=== PATIENT | female | born 1985 | race Caucasian/White ===

== ENCOUNTER 2016-11-19 13:30 | Emergency (ER) | payer MEDICAID ==
[~2016-11-19] VITALS: Ht 175.3 cm; Wt 89.0 kg
[~2016-11-19 13:30] MED LIST: ALBU1AER INH; BENZ100 PO; OSEL75 PO; Z.0.NO CURRENT MEDS
[2016-11-19 13:37] VITALS: BP 152/91; PULSE 87; RESP 18; TEMP 98; O2SAT 96
[2016-11-19] MEDS ORDERED: SODIUM CHLOR 0.9% 1000 ML INJ 1,000 ML IV ONE (13:39)
[2016-11-19 13:40] VITALS: BP 152/91; PULSE 87; RESP 18; TEMP 98; O2SAT 97
[2016-11-19 13:43] VITALS: RESP 18; O2SAT 97
[2016-11-19] MEDS ORDERED: SODIUM CHLORIDE 0.9% FLUSH 5 ML FLUSH IVF PRN (13:45)
--- NOTE | 2016-11-19 13:57 | PD ---
HPI Chief Complaint: Seizure Time Seen by Provider: 13:40 Travel History International Travel<30 days: No Contact w/Intl Traveler<30days: No Traveled to known affect area: No History of Present Illness HPI Patient is a 31-year-old female who presents emergency department for possible seizure. Patient states that she's been detoxing at home off of heroin since November 13, she has had a lack of appetite, insomnia, feeling "shaky", dizziness. She states that she's been attending meetings daily. She also reports using Xanax, she states that she was prescribed it but wouldn't tell a portion of it and keep 20 pills but would not take them consistently or on a daily basis. Patient denies any nausea, vomiting, chest pain, shortness of breath, headache. She was not incontinent after the seizure. [facility] Past Medical History Narrative Medical Drug use, heroin Bipolar Disorder: Yes Anxiety: Yes Depression: Yes Diminished Hearing: No Influenza Vaccination: No ?: Not : 1 Para: 0 Miscarriage: 1 : 0 Ovarian Cysts: Yes Past Surgical History Surgical History: No Previous Surgery Family History Family History: Negative Social History Alcohol Use: No Tobacco Use: Yes (/2 PPD) Substance Use: Yes (Heroin frequently and Xanax occasionally) Allergies-Medications (Allergen,Severity, Reaction): Coded Allergies: No Known Allergies (Verified , 12/21/13) Reported Meds & Prescriptions Reported Meds & Active Scripts Active Proair Hfa (Albuterol Sulfate) 8.5 Gm Aero 2 Puff INH Q4 * SHAKE WELL BEFORE USE * Tessalon Perles (Benzonatate) 100 Mg Cap 100 Mg PO TID PRN Tamiflu (Oseltamivir Phosphate) 75 Mg Cap 75 Mg PO BID 5 Days Reported No Current Meds (Miscellaneous Medication) Misc Review of Systems Except as stated in HPI: all other systems reviewed are Neg General / Constitutional: No: Fever, Chills Eyes: No: Blurred Vision HENT: No: Headaches, Lightheadedness Cardiovascular: No: Chest Pain or Discomfort Respiratory: No: Shortness of Breath Gastrointestinal: Positive: Loss of Appetite, No: Nausea, Vomiting Neurologic: Positive: Dizziness, Tremor, Seizures Physical Exam Narrative GENERAL: Well developed, well-nourished, alert female. Resting comfortably in no acute distress. Patient does appear anxious. SKIN: Warm and dry. HEAD: Atraumatic. Normocephalic. EYES: Pupils equal and round. No scleral icterus. No injection or drainage. ENT: No nasal bleeding or discharge. Mucous membranes pink and moist. NECK: Trachea midline. No JVD. CARDIOVASCULAR: Regular rate and rhythm. No murmur appreciated. RESPIRATORY: No accessory muscle use. Clear to auscultation. Breath sounds equal bilaterally. GASTROINTESTINAL: Abdomen soft, non-tender, nondistended. Hepatic and splenic margins not palpable. MUSCULOSKELETAL: No obvious deformities. No clubbing. No cyanosis. No edema. NEUROLOGICAL: Awake and alert. No obvious cranial nerve deficits. Motor grossly within normal limits. Normal speech. PSYCHIATRIC: Appropriate mood and affect; insight and judgment normal. Data Data Last Documented VS Vital Signs Date Time Temp Pulse Resp B/P Pulse Ox O2 Delivery O2 Flow Rate FiO2 11/19/16 13:43 18 97 Room Air 11/19/16 13:40 98.0 87 152/91 Orders Complete Blood Count With Diff (11/19/16 13:39) Electrocardiogram (11/19/16 ) Ct Brain W/O Iv Contrast(Rout) (11/19/16 ) Blood Glucose (11/19/16 13:39) Ecg Monitoring (11/19/16 13:39) Iv Access Insert/Monitor (11/19/16 13:39) Oximetry (11/19/16 13:39) Comprehensive Metabolic Panel (11/19/16 13:39) Sodium Chlor 0.9% 1000 Ml Inj (Ns 1000 M (11/19/16 13:39) Sodium Chloride 0.9% Flush (Ns Flush) (11/19/16 13:45) Ed Urine Pregnancytest Poc (11/19/16 13:39) Potassium Chloride (Kcl) (11/19/16 15:45) Labs Laboratory Tests Test 11/19/16 14:28 White Blood Count 10.4 TH/MM3 Red Blood Count 4.75 MIL/MM3 Hemoglobin 14.4 GM/DL Hematocrit 41.5 % Mean Corpuscular Volume 87.3 FL Mean Corpuscular Hemoglobin 30.3 PG Mean Corpuscular Hemoglobin 34.7 % Concent Red Cell Distribution Width 13.2 % Platelet Count 438 TH/MM3 Mean Platelet Volume 7.8 FL Neutrophils (%) (Auto) 72.0 % Lymphocytes (%) (Auto) 21.9 % Monocytes (%) (Auto) 5.5 % Eosinophils (%) (Auto) 0.2 % Basophils (%) (Auto) 0.4 % Neutrophils # (Auto) 7.5 TH/MM3 Lymphocytes # (Auto) 2.3 TH/MM3 Monocytes # (Auto) 0.6 TH/MM3 Eosinophils # (Auto) 0.0 TH/MM3 Basophils # (Auto) 0.0 TH/MM3 CBC Comment DIFF FINAL Differential Comment Sodium Level 140 MEQ/L Potassium Level 3.4 MEQ/L Chloride Level 106 MEQ/L Carbon Dioxide Level 22.8 MEQ/L Anion Gap 11 MEQ/L Blood Urea Nitrogen 8 MG/DL Creatinine 0.93 MG/DL Estimat Glomerular Filtration 71 ML/MIN Rate Random Glucose 109 MG/DL Calcium Level 9.8 MG/DL Total Bilirubin 0.7 MG/DL Aspartate Amino Transf 40 U/L (AST/SGOT) Alanine Aminotransferase 90 U/L (ALT/SGPT) Alkaline Phosphatase 130 U/L Total Protein 8.9 GM/DL Albumin 4.7 GM/DL MDM Medical Decision Making Medical Screen Exam Complete: Yes Emergency Medical Condition: Yes Interpretation(s) Vital Signs Date Time Temp Pulse Resp B/P Pulse Ox O2 Delivery O2 Flow Rate FiO2 11/19/16 13:43 18 97 Room Air 11/19/16 13:40 98.0 87 18 152/91 97 Room Air 11/19/16 13:40 80 18 95 Room Air 11/19/16 13:37 98.0 87 18 152/91 96 Differential Diagnosis Substance abuse versus withdrawal versus seizure versus pseudoseizure versus other Narrative Course Patient is a 31-year-old female who presents emergency via EMS after she was found convulsing on the floor for home. Patient has no history of seizure disorder, she has a heroin addiction and occasional Xanax use. She has been clean since November 13 of this year. She has not had any nausea or vomiting but reports decreased appetite, insomnia, tremors. She is positive for hepatitis C. Her vital signs are currently stable, she is well oxygenated on room air and does not appear to be in a postictal state. Patient is neurologically intact. Labs and imaging ordered and pending. Patient reports using Xanax however she states that she would sell a portion of her prescription order to buy heroin and denies consistent daily usage. It is less likely the patient is experiencing seizure activity secondary to benzodiazepine withdrawal. EKG shows normal sinus rhythm CT of the brain is negative for acute abnormality, normal examination. CBC is unremarkable Chemistry shows a potassium of 3.4, this will be replaced with oral supplementation. Patient has not had any further seizure activity in the emergency department, she remains neurologically intact. At this time patient will be discharged home, she will be given information for outpatient detox. She is encouraged to return to emergency department for any new or worsening symptoms. Patient verbalized understanding of instructions. Patient is stable for discharge. Diagnosis Primary Impression: Seizure-like activity Additional Impression: Heroin addiction Referrals: [facility] 1 day Patient Instructions: General Instructions, New-Onset Seizure in Adults (ED) Additional Instructions: Follow-up with your primary doctor Follow-up with the [facility] for further assistance Return to emergency department for any new or worsening symptoms Med/Other Pt SpecificInfo: No Change to Meds Disposition: 01 DISCHARGE HOME Condition: Stable Silvana Campos Nov 19, 2016 13:57
[2016-11-19 15:03] LABS: AUTOMATED NEUTROPHIL # 7.5 TH/MM3 (1.8-7.7); BASOPHIL % 0.4 % (0.0-2.0); EOSINOPHIL % 0.2 % (0.0-4.0); HEMATOCRIT 41.5 % (35.0-46.0); HEMO FLAGS DIFF FINAL; LYMPH % 21.9 % (9.0-44.0); LYMPHOCYTE # 2.3 TH/MM3 (1.0-4.8); MEAN CELL VOLUME 87.3 FL (80.0-100.0); MEAN CORPUSCULAR HEMOGLOBIN 30.3 PG (27.0-34.0); MEAN CORPUSCULAR HGB CONC 34.7 % (32.0-36.0); MONO % 5.5 % (0.0-8.0); PLATELET COUNT 438 TH/MM3 (150-450); RED BLOOD COUNT 4.75 MIL/MM3 (4.00-5.30); RED CELL DISTRIBUTION WIDTH 13.2 % (11.6-17.2); WHITE BLOOD COUNT 10.4 TH/MM3 (4.0-11.0)
--- NOTE | 2016-11-19 15:06 | RADRPT ---
EXAM DATE/TIME: 11/19/2016 14:42 [place] COMPARISON: No previous studies available for comparison. INDICATIONS : Seizure; heroin detox. RADIATION DOSE: 56.35 CTDIvol (mGy) MEDICAL HISTORY : None. SURGICAL HISTORY : None. ENCOUNTER: Initial ACUITY: 1 day PAIN SCALE: 0/10 LOCATION: cranial TECHNIQUE: Multiple contiguous axial images were obtained of the head. Using automated exposure control and adj ustment of the mA and/or kV according to patient size, radiation dose was kept as low as reasonably a chievable to obtain optimal diagnostic quality images. FINDINGS: CEREBRUM: The ventricles are normal for age. No evidence of midline shift, mass lesion, hemorrhage or acute in farction. No extra-axial fluid collections are seen. POSTERIOR FOSSA: The cerebellum and brainstem are intact. The 4th ventricle is midline. The cerebellopontine angle i s unremarkable. EXTRACRANIAL: The visualized portion of the orbits is intact. SKULL: The calvaria is intact. No evidence of skull fracture. CONCLUSION: Normal examination. Jovi Patrick MD on November 19, 2016 at 15:03 Board Certified Radiologist. This report was verified electronically.
--- NOTE | 2016-11-19 15:24 | PD ---
Data Data Last Documented VS Vital Signs Date Time Temp Pulse Resp B/P Pulse Ox O2 Delivery O2 Flow Rate FiO2 11/19/16 13:43 18 97 Room Air 11/19/16 13:40 98.0 87 152/91 Orders Complete Blood Count With Diff (11/19/16 13:39) Electrocardiogram (11/19/16 ) Ct Brain W/O Iv Contrast(Rout) (11/19/16 ) Blood Glucose (11/19/16 13:39) Ecg Monitoring (11/19/16 13:39) Iv Access Insert/Monitor (11/19/16 13:39) Oximetry (11/19/16 13:39) Comprehensive Metabolic Panel (11/19/16 13:39) Sodium Chlor 0.9% 1000 Ml Inj (Ns 1000 M (11/19/16 13:39) Sodium Chloride 0.9% Flush (Ns Flush) (11/19/16 13:45) Ed Urine Pregnancytest Poc (11/19/16 13:39) Labs Laboratory Tests Test 11/19/16 14:28 White Blood Count 10.4 TH/MM3 Red Blood Count 4.75 MIL/MM3 Hemoglobin 14.4 GM/DL Hematocrit 41.5 % Mean Corpuscular Volume 87.3 FL Mean Corpuscular Hemoglobin 30.3 PG Mean Corpuscular Hemoglobin 34.7 % Concent Red Cell Distribution Width 13.2 % Platelet Count 438 TH/MM3 Mean Platelet Volume 7.8 FL Neutrophils (%) (Auto) 72.0 % Lymphocytes (%) (Auto) 21.9 % Monocytes (%) (Auto) 5.5 % Eosinophils (%) (Auto) 0.2 % Basophils (%) (Auto) 0.4 % Neutrophils # (Auto) 7.5 TH/MM3 Lymphocytes # (Auto) 2.3 TH/MM3 Monocytes # (Auto) 0.6 TH/MM3 Eosinophils # (Auto) 0.0 TH/MM3 Basophils # (Auto) 0.0 TH/MM3 CBC Comment DIFF FINAL Differential Comment MDM Supervised Visit with ANA: Yes Narrative Course I, Dr. De La Torre, have reviewed the advance practice practioner's documentation and am in agreement, met with the patient face to face, made the diagnosis, and the medical decision making was done by me. *My assessment and Findings: 31-year-old female here for possible seizure. Apparently she has been detoxing from heroin, last using November 13. Patient also uses Xanax but has only been using this sparingly, and actually selling it in order to purchase heroin. She reportedly had a brief episode of generalized she did bite her tongue but was not incontinent. No history of seizures. Her neurologic examination here is unremarkable, she does have a laceration/bite to the left side of the tongue which is hemostatic. Differential includes seizure , epilepsy, intracranial mass, withdrawal, electrolyte abnormality. This is unlikely to be seizure from opioid withdrawal. She does not use alcohol and only uses benzodiazepine sparingly. CT head was negative. Labs unremarkable will discharge home with outpatient neurology follow-up. Referrals: Roberto Farrell PhD, MD call for appointment Jeanne De La Torre MD Nov 19, 2016 15:24
[2016-11-19 15:33] LABS: ALT (GPT) 90 U/L (10-53); ANION GAP 11 MEQ/L (5-15); AST (GOT) 40 U/L (15-37); BICARBONATE 22.8 MEQ/L (21.0-32.0); BLOOD UREA NITROGEN 8 MG/DL (7-18); CHLORIDE 106 MEQ/L (98-107); GLOMERULAR FILTRATION RATE 71 ML/MIN (>89); POTASSIUM 3.4 MEQ/L (3.5-5.1); SODIUM (NA) 140 MEQ/L (136-145)
[2016-11-19 15:35] LABS: ALKALINE PHOSPHATASE 130 U/L (45-117); TOTAL BILIRUBIN ADULT 0.7 MG/DL (0.2-1.0)
[2016-11-19] MEDS ORDERED: POTASSIUM CHLORIDE 10 MEQ CONTROLLED RELEASE TAB PO ONE (15:45)
[2016-11-19 16:15] VITALS: BP 143/85; TEMP 98.4
--- NOTE | 2016-11-19 19:42 | EKG ---
Date Performed: 11/19/2016 Time Performed: 13:50:25 PTAGE: 31 years EKG: Sinus rhythm NO PREVIOUS TRACING DOCTOR: Miki Dover Interpretating Date/Time 11/19/2016 19:41:21
== END 2016-11-19 16:20 | disposition home or self-care (01) ==
LOC: NEPE 13:30
DX: R42 Dizziness and giddiness (principal); F11.20 Opioid dependence, uncomplicated; F13.239 Sedative, hypnotic or anxiolytic dependence with withdrawal, unspecified; B19.20 Unspecified viral hepatitis C without hepatic coma; F31.9 Bipolar disorder, unspecified; F41.8 Other specified anxiety disorders; F17.210 Nicotine dependence, cigarettes, uncomplicated
CPT/HCPCS: 70450; 80053; 84703; 85025; 93005; 99285; J7030

== ENCOUNTER 2017-05-07 15:28 | Emergency (ER) | payer OTHER ==
[2017-05-07 15:30] VITALS: BP 142/74; PULSE 90; RESP 16; TEMP 98.2; O2SAT 98
--- NOTE | 2017-05-07 16:06 | PD ---
HPI Chief Complaint: Pain: Acute or Chronic Time Seen by Provider: 16:06 Travel History International Travel<30 days: No Contact w/Intl Traveler<30days: No Traveled to known affect area: No History of Present Illness HPI 31-year-old female, 17 weeks , resents to the emergency Department with complaint of right lower back pain 3-4 days. Denies injury. Denies abdominal pain, abdominal cramping. Denies fever, vomiting. Denies vaginal discharge, odor, itch, vaginal bleeding. Reports feeling the baby move. Denies dysuria, urgency, frequency, hematuria. Denies history of kidney stones. Denies IV drug use or cancer. Denies encopresis, incontinence, saddle anesthesias. Denies paresthesias, loss of sensation, decreased range of motion, decreased strength to bilateral lower extremities. Has taken Tylenol for symptom management. Dr. Dupont is cognos consultant. Last menstrual periods every 26. Has no other medical complaints. No known allergies. No other modifying factors or associated signs and symptoms. PFSH Past Medical History Bipolar Disorder: Yes Anxiety: Yes Depression: Yes Diminished Hearing: No : 1 Para: 0 Miscarriage: 1 : 0 Ovarian Cysts: Yes Social History Alcohol Use: No Tobacco Use: Yes (1/2 PPD) Substance Use: Yes (Heroin frequently and Xanax occasionally) Allergies-Medications (Allergen,Severity, Reaction): Coded Allergies: No Known Allergies (Verified , 05/07/17) Reported Meds & Prescriptions Reported Meds & Active Scripts Active Review of Systems Except as stated in HPI: all other systems reviewed are Neg Physical Exam Narrative GENERAL: Well-nourished, well-developed female patient, in no acute distress; afebrile, nontoxic-appearing SKIN: Warm and dry. No rash. HEAD: Atraumatic. Normocephalic. EYES: Pupils equal and round. No scleral icterus. No injection or drainage. ENT: Mucosa pink and moist. NECK: Trachea midline. CARDIOVASCULAR: Regular rate and rhythm. No murmur appreciated. RESPIRATORY: No accessory muscle use. Clear to auscultation. Breath sounds equal bilaterally. GASTROINTESTINAL: Abdomen soft, non-tender, nondistended. Hepatic and splenic margins not palpable. Bowel sounds are active 4 quadrants. Bladder nontender and nondistended. MUSCULOSKELETAL: No obvious deformities. No clubbing. No cyanosis. No edema. BACK: Right CVA tenderness NEUROLOGICAL: Awake and alert. Oriented 3. No obvious cranial nerve deficits. Motor grossly within normal limits. Normal speech. Moves all extremities. 5/5 strength to all extremities. PSYCHIATRIC: Appropriate mood and affect; insight and judgment normal. Data Data Last Documented VS Vital Signs Date Time Temp Pulse Resp B/P Pulse Ox O2 Delivery O2 Flow Rate FiO2 05/07/17 15:30 98.2 90 16 142/74 98 Orders Urinalysis - C+S If Indicated (05/07/17 16:06) Labs Laboratory Tests Test 05/07/17 16:10 Urine Color YELLOW Urine Turbidity CLEAR Urine pH 5.5 Urine Specific [place] 1.024 Urine Protein NEG mg/dL Urine Glucose (UA) NEG mg/dL Urine Ketones NEG mg/dL Urine Occult Blood NEG Urine Nitrite NEG Urine Bilirubin NEG Urine Urobilinogen LESS THAN 2.0 MG/DL Urine Leukocyte Esterase NEG Urine RBC 1 /hpf Urine WBC 1 /hpf Urine Squamous Epithelial 3 /hpf Cells Microscopic Urinalysis Comment CULT NOT INDICATED MDM Medical Decision Making Medical Screen Exam Complete: Yes Emergency Medical Condition: Yes Medical Record Reviewed: Yes Differential Diagnosis UTI, pyelonephritis, kidney stone, acute low back pain Narrative Course 31-year-old female, 17 weeks , with right-sided CVA tenderness. Denies urinary symptoms. Has no related complaints. Urinalysis ordered. 1645: Urinalysis without signs of infection. Instructed to take Tylenol as directed and as needed. Instructed to followup with Section Leader. Patient verbalizes understanding and agreement with treatment plan. Patient is medically cleared and stable for discharge. Discussed reasons to return to the emergency department. Instructed patient to follow up with primary care provider. Patient agrees with treatment plan. The patients vital signs are stable and the patient is stable for outpatient follow-up and treatment. Patient discharged home, stable and in no acute distress. Diagnosis Primary Impression: Low back pain Qualified Code: M54.5 - Right-sided low back pain without sciatica, unspecified chronicity Referrals: Primary Care Physician Patient Instructions: Acute Low Back Pain (ED), General Instructions Departure Forms: Tests/Procedures, Work Release Enter return to work date: May 10, 2017 Additional Instructions: Tylenol as directed and as needed for pain Heating pad and/or ice to affected area as needed Follow-up with primary care provider Follow-up with cognos consultant Return to the emergency department immediately with worsening of symptoms Med/Other Pt SpecificInfo: No Meds Exist/No RX given Scripts No Active Prescriptions or Reported Meds Disposition: 01 DISCHARGE HOME Condition: Stable Kandice Leon May 07, 2017 16:06
[2017-05-07 16:41] LABS: BLOOD, URINE NEG (NEG); COMMENT (UR) CULT NOT INDICATED; CULTURE IF INDICATED CULT NOT INDICATED; GLUCOSE,URINE NEG (NEG); KETONE, URINE NEG (NEG); NITRITE,URINE NEG (NEG); PH, URINE 5.5 (5.0-8.5); SQUAMOUS EPITHELIAL CELL URINE 3 /hpf (0-5); URINE COLOR YELLOW (YELLW/STRAW)
== END 2017-05-07 17:11 | disposition home or self-care (01) ==
LOC: NEPD 15:28
DX: O26.892 Other specified pregnancy related conditions, second trimester (principal); M54.5 Low back pain; Z3A.17 17 weeks gestation of pregnancy
CPT/HCPCS: 81001; 99283

== ENCOUNTER → 2017-07-14 | Outpatient (CLI) | payer MEDICAID | LOC: HPND 08:06 | PROVIDERS: ATTEND Obstetrics & Gynecology | DX: O35.8XX0 Maternal care for other (suspected) fetal abnormality and damage, not applicable or unspecified (principal) | CPT/HCPCS: 76811 ==

== ENCOUNTER → 2017-08-30 | Outpatient (CLI) | payer MEDICAID | LOC: HPND 11:09 | PROVIDERS: ATTEND Obstetrics & Gynecology | DX: O35.1XX0 Maternal care for (suspected) chromosomal abnormality in fetus, not applicable or unspecified (principal); O98.512 Other viral diseases complicating pregnancy, second trimester; O99.322 Drug use complicating pregnancy, second trimester | CPT/HCPCS: 76816 ==

== ENCOUNTER → 2017-09-21 | Outpatient (CLI) | payer MEDICAID | LOC: HPND 10:58 | PROVIDERS: ATTEND Obstetrics & Gynecology | DX: O24.410 Gestational diabetes mellitus in pregnancy, diet controlled (principal); O36.63X0 Maternal care for excessive fetal growth, third trimester, not applicable or unspecified; O98.519 Other viral diseases complicating pregnancy, unspecified trimester; O99.323 Drug use complicating pregnancy, third trimester | CPT/HCPCS: 76816; 76818; 76820 ==

== ENCOUNTER 2017-09-28 12:30 | Inpatient (IN) | payer MEDICAID ==
[2017-09-28] VITALS (67 sets, daily range): BP systolic 129–168; BP diastolic 56–107; PULSE 76–97; RESP 16–18; TEMP 97.9–98.4; O2SAT 97–100
[~2017-09-28] VITALS: Ht 175.3 cm; Wt 116.6 kg
--- NOTE | 2017-09-28 15:16 | HHI.HP ---
HPI Chief Complaint BPP 2 out of 10 Travel History International Travel<30 Days: No Contact w/Intl Traveler<30Days: No Known Affected Area: No History of Present Illness HPI 31-year-old 010, IUP at 37.4 care complicated by gestational hypertension on labetalol 300 mg by mouth twice a day, hepatitis C, history of opiate U/IV drug abuse now clean for 11 months, obesity, gestational diabetes with large for gestational age finding on 08/30/17 The patient presents from OB diagnostics with the biophysical profile today of 2 out of 10. The patient received points for an JAMAAL of 17.5. On the NST in OB diagnostics, she was noted to have some variable decelerations. The patient reports she is feeling well. She denies any leaking of fluid or vaginal bleeding. She denies any painful contractions. She reports there has been decreased movement but she has been feeling some movements. Weeks Gestation: 37 Para: 0 : 2 History Past Medical History Narrative Medical Obesity Obstetric History Obstetric History 010, SAB 1 Family History Family History: Negative Social History Alcohol Use: No Tobacco Use: No Substance Abuse: No Allergies-Medications (Allergen,Severity, Reaction): Coded Allergies: No Known Allergies (Verified , 05/07/17) Home Meds No Active Prescriptions or Reported Meds Review of Systems Except as stated in HPI: all other systems reviewed are Neg Physical Exam Narrative GENERAL: Well-nourished, well-developed patient. SKIN: Warm and dry. HEAD: Normocephalic and atraumatic. EYES: No scleral icterus. No injection or drainage. ENT: No nasal drainage noted. Mucous membranes pink. Airway patent. NECK: Supple, trachea midline. No JVD. CARDIOVASCULAR: Regular rate and rhythm without murmurs, gallops, or rubs. RESPIRATORY: Breath sounds equal bilaterally. No accessory muscle use. BREASTS: Deferred ABDOMEN/GI: Abdomen soft, non-tender, bowel sounds present, no rebound, no guarding Gravid GENITOURINARY: External Genitalia: intact and normal in appearance. Normal BUS. No cervical or vaginal masses appreciated. Grossly normal rugae. SVE FHT's: The patient had a few mild variables initially upon arriving however these results spontaneously and the patient has a reactive heart rate tracing which is currently category 1. heart rate baseline is 1 in the 120s with moderate long-term variability and good accelerations. She has irregular contractions. EXTREMITIES: No cyanosis or edema. BACK: Nontender without obvious deformity. No CVA tenderness. NEUROLOGICAL: Awake and alert. Motor and sensory grossly within normal limits. Five out of 5 muscle strength in all muscle groups. Normal speech. Psychiatric: Grossly normal memory and affect Muscle skeletal: Grossly normal range of motion, gait, muscle strength Caprini VTE Risk Assessment Caprini VTE Risk Assessment: No/Low Risk (score <= 1) Caprini Risk Assessment Model Point Value = 1 Point Value = 2 Point Value = 3 Point Value = 5 Age 41-60 Minor surgery BMI > 25 kg/m2 Swollen legs Varicose veins or History of unexplained or recurrent spontaneous Oral contraceptives or hormone replacement Sepsis (< 1 month) Serious lung disease, including pneumonia (< 1 month) Abnormal pulmonary function Acute myocardial infarction Congestive heart failure (< 1 month) History of inflammatory bowel disease Medical patient at bed rest Age 61-74 Arthroscopic surgery Major open surgery (> 45 min) Laparoscopic surgery (> 45 min) Malignancy Confined to bed (> 72 hours) Immobilizing plaster cast Central venous access Age >= 75 History of VTE Family history of VTE Factor V Leiden Prothrombin [id number] Lupus anticoagulant Anticardiolipin antibodies Elevated serum homocysteine Heparin-induced thrombocytopenia Other congenital or acquired thrombophilia Stroke (< 1 month) Elective arthroplasty Hip, pelvis, or leg fracture Acute spinal cord injury (< 1 month) Prophylaxis Regimen Total Risk Factor Score Risk Level Prophylaxis Regimen 0-1 Low Early ambulation 2 Moderate Order ONE of the following: *Sequential Compression Device (SCD) *Heparin 5000 units SQ BID 3-4 Higher Order ONE of the following medications: *Heparin 5000 units SQ TID *Enoxaparin/Lovenox 40 mg SQ daily (WT < 150 kg, CrCl > 30 mL/min) *Enoxaparin/Lovenox 30 mg SQ daily (WT < 150 kg, CrCl > 10-29 mL/min) *Enoxaparin/Lovenox 30 mg SQ BID (WT < 150 kg, CrCl > 30 mL/min) AND/OR *Sequential Compression Device (SCD) 5 or more Highest Order ONE of the following medications: *Heparin 5000 units SQ TID (Preferred with Epidurals) *Enoxaparin/Lovenox 40 mg SQ daily (WT < 150 kg, CrCl > 30 mL/min) *Enoxaparin/Lovenox 30 mg SQ daily (WT < 150 kg, CrCl > 10-29 mL/min) *Enoxaparin/Lovenox 30 mg SQ BID (WT < 150 kg, CrCl > 30 mL/min) AND *Sequential Compression Device (SCD) Data Data Orders Orders Ob (2e) Additional Admit Info (09/28/17 12:46) Assessment/Plan Assessment and Plan Assessment/plan: 1. IUP at 37.4 2. BPP 12/23: Biophysical profile now for out of 10 with reactive heart rate tracing. The patient was counseled at length regarding delivery options of induction of labor versus delivery. She was counseled that she has an extremely high risk of requiring a delivery for indications due to the indications for delivery at 37 weeks with a low biophysical profile score. However based on the current reassuring heart rate tracing and induction of labor is an option. We discussed the various methods of induction of labor including mechanical dilation, Cytotec, Cervidil, and oxytocin. We discussed that in her case, Cervidil is a hour test option at this point as it can be removed for intolerance of labor. We discussed that if the fetus is unable to tolerate cervical induction she would require delivery. We discussed other indications for delivery and the patient is in agreement for if indicated for indications and or maternal indications. 3. Hepatitis C positive 4. History of IV drug abuse/opioid abuse: Patient reports she has been clean for 11 months, we discussed the likelihood that she would require narcotic pain medication if she requires delivery by section. She reports she is prepared for this and has a plan in the event that she would need to go on opioid pain medication. 5. Gestational hypertension: Patient has been controlled on labetalol 300 mg twice a day. No evidence of preeclampsia, but we'll send preeclampsia labs. 6. Reported large for gestational age with possible gestational diabetes: Patient reports that she is not gestational diabetic but had some borderline elevated sugars however they've been normal. Ultrasound performed on 09/21/17 showed estimated weight of 3417 g which is 81st percentile for 36 weeks and 4 days. Discussed with patient the risks of shoulder dystocia which is increased in mothers with gestational diabetes, discussed the need for appropriate maneuvers at delivery if indicated, as well as the potential for permanent and irreversible neurological injury or brain damage 7. Obesity Sarah Mendoza MD Sep 28, 2017 15:16
[2017-09-28] MEDS ORDERED: LACTATED RINGER'S 1000 ML INJ 1,000 ML IV PRN (17:08)
[2017-09-28] MEDS ORDERED: LIDOCAINE HCL 1% 50 ML VIAL INFIL PRN (17:15)
[2017-09-28] MEDS ORDERED: OXYTOCIN 30 UNITS-500ML PREMIX 500 ML IV ONE (17:15)
[2017-09-28] MEDS ORDERED: CITRIC ACID-SODIUM CITRATE LIQ 30 ML UDC PO SCH (17:15)
[2017-09-28] MEDS ORDERED: SODIUM CHLORID 0.9% 500 ML INJ 500 ML IV PRN (17:15)
[2017-09-28] MEDS ORDERED: LIDOCAINE HCL 1% 50 ML VIAL I-DERMAL PRN (17:15)
[2017-09-28] MEDS ORDERED: MINERAL OIL 10 ML VIAL TOPICAL PRN (17:15)
[2017-09-28] MEDS ORDERED: ONDANSETRON HCL 4 MG/2 ML VIAL IV PUSH PRN (17:15)
[2017-09-28] MEDS ORDERED: SODIUM CHLOR 0.9% 1000 ML INJ 1,000 ML IV PRN (17:28)
[2017-09-28] MEDS ORDERED: DINOPROSTONE 10 MG VAG INSERT VAGINAL ONE (17:30)
[2017-09-28] MEDS ORDERED: SODIUM CHLORIDE 0.9% FLUSH 10 ML FLUSH IV FLUSH PRN (17:30)
[2017-09-28] MEDS: LACTATED RINGER'S 1000 ML INJ 1,000 ML IV SCH (18:35)
--- NOTE | 2017-09-28 18:38 | HHI.PR ---
Subjective Remarks Went to evaluate patient for placement of Cervidil. SVE /-3, posterior. Patient would like to delay Cervidil at this time due to painful contractions. She reports she is expecting frequent and painful contractions. Will monitor for entry into labor. If patient does not enter labor spontaneously will consider Cervidil if additional ripening indicated or trial of oxytocin. FHR reassuring at this time. We'll continue monitoring, and reevaluate for spontaneous entry into labor. We'll considers Cervidil additional cervical ripening indicated or oxytocin later tonight. Objective Vital Signs Date Time Temp Pulse Resp B/P (MAP) Pulse Ox O2 Delivery O2 Flow Rate FiO2 09/28/17 18:15 97.9 09/28/17 18:10 91 09/28/17 18:00 85 157/88 (111) 09/28/17 18:00 85 09/28/17 17:55 82 09/28/17 17:50 86 09/28/17 17:45 84 09/28/17 17:40 83 09/28/17 17:35 79 09/28/17 17:30 79 09/28/17 17:25 78 09/28/17 17:20 83 09/28/17 17:15 83 09/28/17 17:05 78 09/28/17 17:00 81 09/28/17 16:55 80 09/28/17 16:50 77 09/28/17 16:45 86 09/28/17 16:40 84 09/28/17 16:35 79 09/28/17 16:30 78 09/28/17 16:25 81 09/28/17 16:15 80 09/28/17 16:10 79 09/28/17 16:05 76 09/28/17 16:00 79 09/28/17 15:50 79 09/28/17 15:45 78 09/28/17 14:40 80 Sarah Mendoza MD Sep 28, 2017 18:38
[2017-09-28] MEDS ORDERED: fentaNYL 2MCG-BUPIV 0.125% INJ 100 ML ONE (18:43)
[2017-09-28] MEDS ORDERED: ACETAMINOPHEN 325 MG TAB PO PRN (18:45)
[2017-09-28 19:39] LABS: BLOOD, URINE NEG (NEG); COMMENT (UR) CULTURE INDICATED; CULTURE IF INDICATED CULTURE INDICATED; GLUCOSE,URINE NEG (NEG); KETONE, URINE NEG (NEG); MUCUS URINE FEW /lpf (OCC); NITRITE,URINE NEG (NEG); SQUAMOUS EPITHELIAL CELL URINE 5 /hpf (0-5); URINE COLOR YELLOW (YELLW/STRAW)
[2017-09-28] MEDS ORDERED: DO NOT ADMINISTER ANTICOAGULANTS PRN (19:45)
[2017-09-28] MEDS ORDERED: fentaNYL 2MCG-BUPIV 0.125% 100 ML EPIDURAL SCH (19:45)
[2017-09-28] MEDS ORDERED: ePHEDrine/NS 25 MG/5 ML SYR IV PUSH PRN (19:45)
[2017-09-28] MEDS ORDERED: NO SYSTEM NARCOTICS PRN (19:45)
[2017-09-28] MEDS ORDERED: LABETALOL HCL 300 MG TAB PO ONE (20:30)
[2017-09-28 21:00] LABS: BASOPHIL # 0.1 TH/MM3 (0-0.2); BASOPHIL % 0.3 % (0.0-2.0); EOSINOPHIL # 0.1 TH/MM3 (0-0.4); EOSINOPHIL % 0.4 % (0.0-4.0); HEMATOCRIT 32.4 % (35.0-46.0); HEMO FLAGS DIFF FINAL; LYMPH % 14.4 % (9.0-44.0); LYMPHOCYTE # 2.5 TH/MM3 (1.0-4.8); MEAN CELL VOLUME 90.3 FL (80.0-100.0); MEAN CORPUSCULAR HEMOGLOBIN 31.4 PG (27.0-34.0); MEAN CORPUSCULAR HGB CONC 34.7 % (32.0-36.0); MONO % 5.7 % (0.0-8.0); NEUT % 79.2 % (16.0-70.0); PLATELET COUNT 272 TH/MM3 (150-450); RED BLOOD COUNT 3.59 MIL/MM3 (4.00-5.30); RED CELL DISTRIBUTION WIDTH 13.5 % (11.6-17.2); WHITE BLOOD COUNT 17.6 TH/MM3 (4.0-11.0)
[2017-09-28] MEDS ORDERED: SODIUM CHLORIDE 0.9% FLUSH 10 ML FLUSH IV FLUSH SCH (21:00)
[2017-09-28 21:11] LABS: ANION GAP 9 MEQ/L (5-15); AST (GOT) 39 U/L (15-37); BICARBONATE 23.1 MEQ/L (21.0-32.0); BLOOD UREA NITROGEN 11 MG/DL (7-18); CHLORIDE 104 MEQ/L (98-107); GLOMERULAR FILTRATION RATE 117 ML/MIN (>89); POTASSIUM 3.5 MEQ/L (3.5-5.1); SODIUM (NA) 136 MEQ/L (136-145); URIC ACID 6.3 MG/DL (2.6-6.0)
[2017-09-28 21:12] LABS: ALT (GPT) 69 U/L (10-53)
[2017-09-28 21:14] LABS: ALKALINE PHOSPHATASE 157 U/L (45-117); TOTAL BILIRUBIN ADULT 0.4 MG/DL (0.2-1.0)
[2017-09-28] MEDS ORDERED: LIDOCAINE 2%/EPINEPHrine PF 1:200,000 20ML SDV ONE (21:38)
[2017-09-28 21:50] LABS: HEMOGLOBIN A1a 0.7 %; HEMOGLOBIN A1b 1.8 %; HEMOGLOBIN LA1C 1.9 %; HEMOGLOBIN P3 4.9 %
[2017-09-28] MEDS ORDERED: TERBUTALINE INJ 1 MG/ML AMP ONE (22:49)
[2017-09-28] MEDS ORDERED: ceFAZolin INJ 1,000 MG VIAL ONE (23:14)
[2017-09-28] MEDS ORDERED: ACETAMINOPHEN 1000 MG/100 ML 100 ML IV ONE (23:14)
[2017-09-28] MEDS: ACETAMINOPHEN 1000 MG/100 ML 100 ML IV SCH (23:30)
[2017-09-29] VITALS (14 sets, daily range): BP systolic 109–148; BP diastolic 55–89; PULSE 70–89; RESP 1–20; TEMP 97.8–98.5; O2SAT 97–98
[2017-09-29] MEDS ORDERED: OXYTOCIN 30 UNITS-500ML PREMIX 500 ML ONE (00:25)
[2017-09-29] MEDS ORDERED: ROPIVACAINE 0.5% PF INJ 30 ML VIAL ONE (00:28)
[2017-09-29] MEDS ORDERED: EPINEPHrine HCL PF/SF (1:1000) 1 MG/ML AMP I-OCULAR ONE (00:28)
[2017-09-29] MEDS ORDERED: DEXAMETHASONE SOD PHOS 20 MG/5 ML VIAL ONE (00:28)
[2017-09-29] MEDS: LACTATED RINGER'S 1000 ML INJ 1,000 ML IV SCH (01:08)
--- NOTE | 2017-09-29 01:43 | PD.OB.DELI ---
Procedure Note Section Procedure Performed by Sarah Mendoza Procedure: Primary Low Transverse Sec Indication for delivery: Nonreassuring heart tracing Previous condition: None Informed consent obtained: For anesthesia, For procedure Confirmed correct: Patient, Procedure, Site, Time-out taken Anesthesia: Epidural Medication prior to procedure: As documented in eMAR Monitoring during procedure: Blood pressure monitoring, Pulse oximetry Urinary catheter: Inserted using sterile technique, To dependent drainage, ml urine output (200) Sterile preparation: Other (ChloraPrep) Position: Supine with wedge to left side Operative Features Skin Incision: Pfannenstiel Uterine Incision: Low transverse w/knife / blunt ext Membranes Ruptured: Artificially Presentation: Occiput anterior Delivery date: Sep 28, 2017 Delivery time: 23:34 Delivery of : Uneventful : Male One Minute : 2 Five Minute : 7 Status of infant: Viable, Cord blood, Nursery present, Resuscitation required Placenta delivered: Intact Medications: Antibiotics, Oxytocin Estimated blood loss: 700 Procedure tolerated: Well Maternal Condition: Stable Baby Complications: Respiratory distress Condition: Other (stabalized in NICU) Procedure in detail See dictation for full details. In brief, the patient started having repetitive variable appearing decelerations that didn't resolve with resuscitative measures , so the decision was made to proceed with delivery. Sarah Mendoza MD Sep 29, 2017 01:42
[2017-09-29] MEDS ORDERED: KETOROLAC TROMETHAMINE 60 MG/2 ML (IM) VIAL IM PRN (01:45)
[2017-09-29] MEDS ORDERED: SODIUM CHLORIDE 0.9% FLUSH 10 ML FLUSH IV FLUSH PRN (01:45)
[2017-09-29] MEDS ORDERED: OXYTOCIN 30 UNITS-500ML PREMIX 500 ML IV ONE (01:45)
[2017-09-29] MEDS ORDERED: EPIDURAL-DIPHENHYDRAMINE HCL 50 MG CAP PO PRN (02:15)
[2017-09-29] MEDS ORDERED: EPIDURAL-NO SYSTEMIC NARCOTICS PRN (02:15)
[2017-09-29] MEDS ORDERED: EPIDURAL-DO NOT ADMINISTER ANTICOAGULANTS PRN (02:15)
[2017-09-29] MEDS ORDERED: EPIDURAL-NALOXONE HCL 0.4 MG/ML AMP IV PUSH PRN (02:15)
[2017-09-29] MEDS ORDERED: EPIDURAL-DIPHENHYDRAMINE HCL 50 MG/ML VIAL IV PUSH PRN (02:15)
[2017-09-29 05:51] LABS: AUTOMATED NEUTROPHIL # 16.3 TH/MM3 (1.8-7.7); BASOPHIL # 0.1 TH/MM3 (0-0.2); BASOPHIL % 0.3 % (0.0-2.0); HEMATOCRIT 31.6 % (35.0-46.0); HEMO FLAGS DIFF FINAL; LYMPH % 8.4 % (9.0-44.0); LYMPHOCYTE # 1.6 TH/MM3 (1.0-4.8); MEAN CELL VOLUME 90.8 FL (80.0-100.0); MEAN CORPUSCULAR HEMOGLOBIN 31.5 PG (27.0-34.0); MEAN CORPUSCULAR HGB CONC 34.7 % (32.0-36.0); MONO % 5.2 % (0.0-8.0); NEUT % 86.1 % (16.0-70.0); PLATELET COUNT 266 TH/MM3 (150-450); RED BLOOD COUNT 3.48 MIL/MM3 (4.00-5.30); RED CELL DISTRIBUTION WIDTH 13.2 % (11.6-17.2); WHITE BLOOD COUNT 18.9 TH/MM3 (4.0-11.0)
[2017-09-29 06:38] LABS: BLOOD GAS BASE EXCESS -5.9 mmol/L (-2-2); BLOOD GAS O2 HGB SATURATION 4 % (90-100); CORD BLOOD GAS HCO3 25 mmol/L (21-29); CORD BLOOD GAS PCO2 107 mmHG (34-78); CORD BLOOD GAS PH 6.99 (7.14-7.42); CORD BLOOD GAS PO2 6 mmHG (3.0-40.0); DRAW SITE CORD BLOOD; STAT YES
[2017-09-29] MEDS ORDERED: LACTATED RINGER'S 1000 ML INJ 1,000 ML IV SCH (06:43)
[2017-09-29] MEDS: ACETAMINOPHEN 1000 MG/100 ML 100 ML IV SCH ×2 (07:45→17:29)
[2017-09-29] MEDS ORDERED: LABETALOL HCL 300 MG TAB PO SCH (09:00)
[2017-09-29] MEDS: SODIUM CHLORIDE 0.9% FLUSH 10 ML FLUSH IV FLUSH SCH (09:00)
[2017-09-29] MEDS ORDERED: INFLUENZA VIRUS VACCINE (QUADRIVALENT) 0.5 ML SYR IM ONE (10:00)
--- NOTE | 2017-09-29 10:57 | HHI.OB ---
Subjective Post Operative Day: 1 Remarks Patient is a 31-year-old delivered at 37 weeks and 4 days. Patient is day 1 after for nonreassuring heart tracing. Patient' s pain is well-controlled. Patient reports eating and drinking without any nausea or vomiting. Patient reports minimal bleeding. Patient has not passed gas nor bowel movements. She is not yet urinating. Patient is walking without lower extremity pain or shortness of breath. Patient reports desire for contraception with OCP's and breast-feeding. Objective Vitals/I&O Vital Signs Date Time Temp Pulse Resp B/P (MAP) Pulse Ox O2 Delivery O2 Flow Rate FiO2 09/29/17 08:30 19 09/29/17 08:00 98.5 83 18 139/89 (106) 09/29/17 06:00 98.5 89 18 148/86 (106) 09/29/17 04:15 16 09/29/17 02:30 138/85 (102) 09/29/17 02:30 98.0 75 18 09/29/17 01:17 97.8 09/29/17 01:16 134/79 (97) 09/29/17 01:13 70 09/29/17 01:13 18 09/29/17 01:05 98 09/29/17 01:02 71 20 125/77 (93) 09/29/17 00:42 97.9 09/29/17 00:42 72 1 109/55 (73) 97 09/29/17 00:42 17 09/28/17 22:45 82 100 09/28/17 22:40 81 100 09/28/17 22:35 83 100 09/28/17 22:31 87 129/56 (80) 09/28/17 22:30 84 100 09/28/17 22:01 81 134/78 (96) 09/28/17 21:31 81 145/84 (104) 09/28/17 21:01 80 145/82 (103) 09/28/17 20:31 88 146/86 (106) 09/28/17 20:16 90 157/90 (112) 09/28/17 20:01 86 156/91 (112) 09/28/17 20:00 98.4 09/28/17 19:51 90 162/97 (118) 11/16/17 19:50 92 16/17 19:50 98 16/17 19:47 18 16/17 19:46 89 155/71 (99) 16/17 19:45 98 16/17 19:45 90 16/17 19:41 89 168/95 (119) 16/17 19:40 97 16/17 19:40 92 16/17 19:36 90 162/107 (125) 16/17 19:35 97 16/17 19:35 99 16/17 19:31 90 159/83 (108) 16/17 19:30 99 16/17 19:30 96 16/17 19:30 16 16/17 19:26 91 168/86 (113) 16/17 19:25 95 16/17 19:25 99 16/17 19:21 90 168/102 (124) 16/17 19:20 97 98 16/17 19:15 90 99 16/17 19:10 91 99 16/17 19:05 86 16/17 19:05 99 16/17 19:00 82 16/17 19:00 100 16/17 18:55 86 16/17 18:55 99 16/17 18:50 84 16/17 18:50 98 16/17 18:45 99 16/17 18:45 84 16/17 18:40 83 16/17 18:35 82 16/17 18:30 89 16/17 18:25 84 16/17 18:20 82 16/17 18:15 81 16/17 18:15 97.9 16/17 18:10 91 16/17 18:00 85 157/88 (111) 16/17 18:00 85 16/17 17:55 82 16/17 17:50 86 16/17 17:45 84 16/17 17:40 83 16/17 17:35 79 16/17 17:30 79 16/17 17:25 78 16/17 17:20 83 09/28/17 17:15 83 09/28/17 17:05 78 09/28/17 17:00 81 09/28/17 16:55 80 09/28/17 16:50 77 09/28/17 16:45 86 09/28/17 16:40 84 09/28/17 16:35 79 09/28/17 16:30 78 09/28/17 16:25 81 09/28/17 16:15 80 09/28/17 16:10 79 09/28/17 16:05 76 09/28/17 16:00 79 09/28/17 15:50 79 09/28/17 15:45 78 09/28/17 14:40 80 Result Diagram: 09/29/1751909/28/172033 Objective Remarks GENERAL: Well-nourished, well-developed patient. CARDIOVASCULAR: Regular rate and rhythm without murmurs, gallops, or rubs. RESPIRATORY: Breath sounds equal bilaterally. No accessory muscle use. ABDOMEN/GI: Abdomen soft, non-tender, bowel sounds present. Incision: Clean, dry and intact. Fundus: Firm, non-tender at umbilicus. GENITOURINARY: Light to moderate bleeding. EXTREMITIES: No cyanosis or edema, non-tender, without signs of DVT. Medications and IVs Current Medications Medications (Trade) Dose Ordered Sig/Rosalba Route Start Time Stop Time Status Last Admin (Tylenol) 650 mg Q4H PRN PO 09/28/17 18:45 09/28/17 20:25 Miscellaneous Information No systemic narcotics to be given except... UNSCH PRN .XX 09/28/17 19:45 09/29/17 19:44 Miscellaneous Information DO NOT ADMINISTER ANY ANTICOAGUL... UNSCH PRN .XX 09/28/17 19:45 09/29/17 19:44 (Trandate) 300 mg BID PO 09/29/17 09:00 09/29/17 08:17 Lactated Ringer's 1,000 ml @ 100 mls/hr Q10H IV 09/29/17 06:43 09/30/17 02:42 Oxytocin 500 ml @ 100 mls/hr UNSCH X1 PRN IV 09/29/17 11:45 09/30/17 11:44 (NS Flush) 2 ml BID IV FLUSH 09/29/17 09:00 (NS Flush) 2 ml UNSCH PRN IV FLUSH 09/29/17 01:45 (Toradol Inj) 30 mg Q6H PRN IM 09/29/17 01:45 09/30/17 01:44 (Percocet 5-325 Mg) 1 tab Q4H PRN PO 09/29/17 01:45 (Percocet 5-325 Mg) 2 tab Q4H PRN PO 09/29/17 01:45 (Ambien) 5 mg HS PRN PO 09/29/17 01:45 (M-M-R Ii Inj) 0.5 ml ONCE ONCE SQ 09/30/17 16:00 09/30/17 16:01 (Boostrix Inj) 0.5 ml ONCE ONCE IM 09/30/17 16:00 09/30/17 16:01 Miscellaneous Information NO SYSTEMIC NARCOTICS TO BE GIVEN FO... UNSCH PRN .XX 09/29/17 02:15 09/30/17 02:14 (Narcan Inj) 0.4 mg UNSCH PRN IV PUSH 09/29/17 02:15 09/30/17 02:14 (Benadryl Inj) 25 mg Q6H PRN IV PUSH 09/29/17 02:15 09/30/17 02:14 (Benadryl) 50 mg Q6H PRN PO 09/29/17 02:15 09/30/17 02:14 Miscellaneous Information ALL NURSING DEPARTMENTS UNSCH PRN .XX 09/29/17 02:15 09/30/17 02:14 Acetaminophen 100 ml @ 400 mls/hr Q8H IV 09/28/17 23:30 09/29/17 15:44 09/29/17 07:45 (Motrin) 600 mg Q6HR PRN PO 09/29/17 09:00 Assessment/Plan Problem List: (1) S/P ICD Codes: Z98.891 - History of uterine scar from previous surgery Assessment and Plan Patient is a 31-year-old delivered at 37 weeks and 4 days. Patient is day 1 after for nonreassuring heart tracing. Patient was counseled to do 6 weeks of pelvic rest. Patient was counseled to follow up in one week for an incision check and again in 6 weeks. Patient requested follow -up and contraception with OCPs. 1. Routine postop care --AF VSS --Continue routine care --Motrin and Percocet when necessary for pain --Encourage OOB --Pelvic rest for 6 weeks will need follow-up appointment at that time. Follow- up for incision check in one week. --Contraception: OCPs --Anticipate discharge tomorrow or the next day 2. baby in NICU on CPAP 3. Hepatitis C positive 4. History of IV drug abuse/opioid abuse: Patient reports she has been clean for 11 months, we discussed the likelihood that she would require narcotic pain medication if she requires delivery by section. She reports she is prepared for this and has a plan in the event that she would need to go on opioid pain medication. 5. Gestational hypertension: Patient has been controlled on labetalol 300 mg twice a day. No evidence of preeclampsia, but we'll send preeclampsia labs. 6. Reported large for gestational age with possible gestational diabetes: Patient reports that she is not gestational diabetic but had some borderline elevated sugars however they've been normal. Ultrasound performed on 09/21/17 showed estimated weight of 3417 g which is 81st percentile for 36 weeks and 4 days. Discussed with patient the risks of shoulder dystocia which is increased in mothers with gestational diabetes, discussed the need for appropriate maneuvers at delivery if indicated, as well as the potential for permanent and irreversible neurological injury or brain damage 7. Obesity Discussed with Dr. Reji Mai,Navid Mitchell MD R2 Sep 29, 2017 10:57
[2017-09-29] MEDS ORDERED: OXYTOCIN 30 UNITS-500ML PREMIX 500 ML IV PRN (11:45)
[2017-09-29] MEDS: IBUPROFEN 600 MG TAB PO PRN ×2 (12:59→19:47)
--- NOTE | 2017-09-29 18:41 | MP ---
cc: MARLENI MENDOZA MD DATE OF SURGERY 09/29/17 PREOPERATIVE DIAGNOSIS 1. Intrauterine at 37 weeks and four days 2. Non-reassuring testing with a biophysical profile of 4/10 3. Failure to tolerate labor. 4. Gestational hypertension 5. Gestational diabetes 6. Maternal obesity 7. History of IV drug abuse/opioid use. 8. Hepatitis C POSTOPERATIVE DIAGNOSIS 1. Intrauterine at 37 weeks and four days 2. Non-reassuring testing with a biophysical profile of 4/10 3. Failure to tolerate labor. 4. Gestational hypertension 5. Gestational diabetes 6. Maternal obesity 7. History of IV drug abuse/opioid use. 8. Hepatitis C PROCEDURE Primary low transverse caesarean section with two layer closure and no extension and Pfannenstiel skin incision. SURGEON Jerad Mendoza MD [employer] OPERATOR HELPER Talisha Whaley INDICATIONS The patient is a 31 year old 2, para 0-0-1-0 who [facility] at 37 weeks and four days. At the [facility], she had a biophysical profile that was 2/10 and was sent for further evaluation and delivery. On Labor and Delivery Unit, she had a reactive NST and proceeded to have an overall reassuring heart rate tracing until I was off the floor attending to other emergencies at which point she started having what appeared to be repetitive mostly variable decelerations. Upon my arrival to the floor and noticing the heart rate pattern, resuscitative measures were taken, however, the decelerations did not completely resolved. The decision was therefore made to proceed with caesarean delivery. FINDINGS A viable male in a cephalic presentation with Apgars 2 and 7 weighing ____ grams. SPECIMENS REMOVED Placenta ESTIMATED BLOOD LOSS 700 mL. IV FLUID 1100 mL URINE OUTPUT 200 mL clear urine at the end of the procedure PROCEDURE IN DETAIL After obtaining informed consent with risks, benefits and alternatives discussed at length with the patient including but not limited to pain, infection, bleeding, injury to other organs like the bladder, bowel, nerves and vessels, injury to the baby, need for repeat operation or hysterectomy, need for a blood transfusion, wound infection and breakdown and other possible complications the patient was taken to the operating room with IV fluids running and a Lovett catheter in place. Her epidural was redosed which caused her to become hypotensive, although I was not notified of this finding until after the delivery. When in the operating room, she was prepped and draped in normal sterile fashion in the dorsal supine position with a leftward tilt. A timeout procedure was performed and adequate anesthesia confirmed. After once again confirming adequate anesthesia, a Pfannenstiel skin incision was made with a scalpel and carried down to the level of the fascia. The fascia was nicked in the midline with the scalpel and the fascial incision extended laterally with the curved Monroy scissors. The Jud clamps were applied to the superior aspect of the fascial incision which was dissected off the underlying rectus muscles bluntly and with sharp dissection. The Jud clamps were applied to the inferior aspect of the fascial incision which was dissected off in a similar manner. The rectus muscles were in the midline and the peritoneum entered bluntly. The peritoneal incision was extended bluntly. Due to a large bleeding blood vessel on the left rectus vessel, this vessel was suture ligated with 2-0 Vicryl. The [place] self containing wound retractor was placed and the lower uterine segment was visualized. The vesicouterine peritoneum was identified, grasped with pick ups and entered sharply with the Metzenbaum scissors. This incision was extended laterally and the bladder flap created digitally. The vesicouterine peritoneum was identified. The lower uterine segment was incised with a scalpel and a hysterotomy was extended bluntly and the vertex was elevated at the level of the hysterotomy. The vertex was delivered atraumatically followed by atraumatic delivery of the remainder of the . The NICU was up at bedside and during stimulation measures indicated to delay 45 second for cord clamping. The made what appeared to be small attempt to cry, however, was not vigorous so the cord was doubly clamped and cut at 40 seconds and the passed off to the waiting neonatology team. An umbilical cord segment was obtained and cord blood obtained for the nursery. The placenta was removed manually. The uterus was cleared of all clots and debris. The hysterotomy was repaired with a #1 Chromic in a running lock fashion. A second layer of the same suture was used in imbricating fashion after which excellent hemostasis was noted. The gutters were cleared of all clots and debris and the hysterotomy reinspected and noted to be hemostatic. The [place] self containing wound retractor was removed and once again the hysterotomy confirmed to be hemostatic. The peritoneum was reapproximated with 2-0 Vicryl in a running fashion. The rectus muscles were reexamined and noted to be hemostatic. The peritoneum was reapproximated with #1 Vicryl in a running fashion. The subcutaneous tissue was irrigated with warm normal saline and noted to be hemostatic. The fascial incision was noted to be without defect. The subcutaneous tissue was closed with 2-0 Vicryl in interrupted fashion. The skin edges were reapproximated with 3-0 Monocryl. Excellent hemostasis and cosmesis were noted. The incision was covered with Dermabond. All sponge, lap and needle counts were correct times two. I performed the entire procedure myself. MD SIMONA Mane/ /8:50 AM /6:17 PM
[2017-09-29] MEDS: ZOLPIDEM TARTRATE 5 MG TAB PO PRN (22:05)
[2017-09-29] MEDS: LABETALOL HCL 100 MG TAB PO SCH (22:45)
[2017-09-30] MEDS: IBUPROFEN 600 MG TAB PO PRN ×4 (05:27→22:48)
[2017-09-30] MEDS: oxyCODONE/ACETAMINOPHEN 5 MG/325 MG TAB PO PRN ×4 (05:27→21:35)
--- NOTE | 2017-09-30 07:50 | HHI.OB ---
Subjective Post Operative Day: 2 Remarks Postoperative day # 2 AFVSS overnight. Incision not draining. Decreased lochia. Denies dysuria. No breast tenderness. She is feeding the baby via breast. Appetite good. No nausea or vomiting. Positive flatus. Ambulating well. Denies calf pain or shortness of breath. Otherwise, she is doing well this morning and has no other complaints. Objective Vitals/I&O Vital Signs Date Time Temp Pulse Resp B/P (MAP) Pulse Ox O2 Delivery O2 Flow Rate FiO2 09/29/17 22:04 116/78 (91) 09/29/17 22:04 78 09/29/17 19:00 98.3 85 18 135/73 (93) 98 09/29/17 11:30 97.9 84 18 121/75 (90) 97 09/29/17 08:30 19 09/29/17 08:00 98.5 83 18 139/89 (106) Result Diagram: 09/29/1751909/28/172033 Objective Remarks GENERAL: Well-nourished, well-developed patient. CARDIOVASCULAR: Regular rate and rhythm without murmurs, gallops, or rubs. RESPIRATORY: Breath sounds equal bilaterally. No accessory muscle use. ABDOMEN/GI: Abdomen soft, non-tender, bowel sounds present. Incision: Clean, dry and intact. Fundus: Firm, non-tender at umbilicus. GENITOURINARY: Light to moderate bleeding. EXTREMITIES: No cyanosis or edema, non-tender, without signs of DVT. Medications and IVs Current Medications Medications (Trade) Dose Ordered Sig/Rosalba Route Start Time Stop Time Status Last Admin (Tylenol) 650 mg Q4H PRN PO 09/28/17 18:45 09/28/17 20:25 Oxytocin 500 ml @ 100 mls/hr UNSCH X1 PRN IV 09/29/17 11:45 09/30/17 11:44 (NS Flush) 2 ml BID IV FLUSH 09/29/17 09:00 (NS Flush) 2 ml UNSCH PRN IV FLUSH 09/29/17 01:45 (Percocet 5-325 Mg) 1 tab Q4H PRN PO 09/29/17 01:45 09/30/17 05:27 (Percocet 5-325 Mg) 2 tab Q4H PRN PO 09/29/17 01:45 (Ambien) 5 mg HS PRN PO 09/29/17 01:45 09/29/17 22:05 (M-M-R Ii Inj) 0.5 ml ONCE ONCE SQ 09/30/17 16:00 09/30/17 16:01 (Boostrix Inj) 0.5 ml ONCE ONCE IM 09/30/17 16:00 09/30/17 16:01 (Motrin) 600 mg Q6HR PRN PO 09/29/17 09:00 09/30/17 05:27 (Trandate) 100 mg BID PO 09/29/17 22:30 09/29/17 22:45 Assessment/Plan Problem List: (1) S/P ICD Codes: Z98.891 - History of uterine scar from previous surgery Assessment and Plan Patient is a 31-year-old delivered at 37 weeks and 4 days. Patient is day 2 after for nonreassuring heart tracing. Patient was counseled to do 6 weeks of pelvic rest. Patient was counseled to follow up in one week for an incision check and again in 6 weeks. Patient requested follow -up and contraception with OCPs. 1. Routine postop care --AF VSS --Continue routine care --Motrin and Percocet when necessary for pain --Encourage OOB --Pelvic rest for 6 weeks will need follow-up appointment at that time. Follow- up for incision check in one week. --Contraception: OCPs --Anticipate discharge tomorrow or the next day 2. baby in NICU on CPAP 3. Hepatitis C positive 4. History of IV drug abuse/opioid abuse: Patient reports she has been clean for 11 months, we discussed the likelihood that she would require narcotic pain medication if she requires delivery by section. She reports she is prepared for this and has a plan in the event that she would need to go on opioid pain medication. Took opioids this morning which helped relieve pain. 5. Gestational hypertension: Patient has been controlled on labetalol 300 mg twice a day. No evidence of preeclampsia, but we have sent preeclampsia labs. 7. Obesity Discussed with Navid Marti MD R1 Sep 30, 2017 07:50
[2017-09-30 08:00] VITALS: BP 122/71; PULSE 77; RESP 14; TEMP 97.5; O2SAT 98
[2017-09-30] MEDS: LABETALOL HCL 100 MG TAB PO SCH ×2 (11:28→21:34)
[2017-09-30] MEDS ORDERED: DIPHTH/TETANUS/ACEL PERTUSSIS (BOOSTER) 0.5 ML VIAL/PFS IM ONE (16:00)
[2017-09-30] MEDS ORDERED: MEASLES, MUMPS, RUBELLA VACCINE 0.5 ML VIAL SQ ONE (16:00)
[2017-09-30 16:20] VITALS: BP 154/97
[2017-09-30 18:39] VITALS: BP 156/87
[2017-09-30 21:36] VITALS: BP 142/83; PULSE 78
[2017-10-01] MEDS: ZOLPIDEM TARTRATE 5 MG TAB PO PRN (00:13)
[2017-10-01 00:30] VITALS: BP 133/79; PULSE 84; RESP 20; TEMP 97.8; O2SAT 99
[2017-10-01] MEDS: oxyCODONE/ACETAMINOPHEN 5 MG/325 MG TAB PO PRN ×2 (08:15→15:16)
[2017-10-01] MEDS: LABETALOL HCL 100 MG TAB PO SCH (08:15)
[2017-10-01] MEDS: IBUPROFEN 600 MG TAB PO PRN ×2 (08:16→15:16)
[2017-10-01] MEDS: SODIUM CHLORIDE 0.9% FLUSH 10 ML FLUSH IV FLUSH SCH (08:16)
[2017-10-01] MEDS ORDERED: IBUP-232 PO (09:34)
[2017-10-01] MEDS ORDERED: OXYC1TAB63 PO (09:34)
[2017-10-01] MEDS ORDERED: LABE100T2 PO (09:34)
--- NOTE | 2017-10-01 09:35 | HHI.DCPOC ---
Discharge Care Plan Diagnosis: (1) S/P Report Symptoms to Your Doctor -Temperature above 100.5 degrees -Redness, of incision or excessive or foul smelling drainage -Unusual pain or calf pain -Increased vaginal bleeding -Painful or difficulty urinating -Feelings of extreme sadness or anxiety after 2 weeks Goals to Promote Your Health * To prevent worsening of your condition and complications * To maintain your health at the optimal level Directions to Meet Your Goals Take your medications as prescribed Follow your dietary instruction Follow activity as directed Ensure plenty of rest for recovery Drink fluids for hydration Keep your appointments as scheduled Take your immunizations and boosters as scheduled If your symptoms worsen call your PCP, if no PCP go to Urgent Care Center or Emergency Room Smoking is Dangerous to Your Health. Avoid second hand smoke Call the 24-hour crisis hotline for domestic abuse at Tee Whaley MD R2 Oct 01, 2017 09:35
[2017-10-01] MEDS ORDERED: PERI PO (09:39)
[2017-10-01] MEDS ORDERED: DOCUSATE SODIUM 50 MG/SENNA 8.6 MG TAB PO PRN (09:45)
--- NOTE | 2017-10-01 10:40 | HHI.OB ---
Subjective Post Operative Day: 1 Remarks Pt seen and examined this morning. day # 3. Afebrile overnight. Patient's blood pressure has ranged from 122/71 to 156/87 over the last 24 hours while on labetalol. Incision not draining. Decreased lochia. Denies dysuria. No breast tenderness. She is feeding the baby via breast. Appetite good. No nausea or vomiting. Patient has had a bowel movement. Ambulating well. Denies calf pain or shortness of breath. Otherwise, she is doing well this morning and has no other concerns. Objective Vitals/I&O Vital Signs Date Time Temp Pulse Resp B/P (MAP) Pulse Ox O2 Delivery O2 Flow Rate FiO2 10/01/17 00:30 97.8 84 20 133/79 (97) 99 09/30/17 21:36 78 142/83 (102) 09/30/17 18:39 156/87 (110) 09/30/17 16:20 154/97 (116) Result Diagram: 09/29/1751909/28/172033 Objective Remarks GENERAL: Well-nourished, well-developed patient. CARDIOVASCULAR: Regular rate and rhythm without murmurs, gallops, or rubs. RESPIRATORY: Breath sounds equal bilaterally. No accessory muscle use. ABDOMEN/GI: Abdomen soft, non-tender, bowel sounds present. Incision: Clean, dry and intact. Fundus: Firm, non-tender at umbilicus. GENITOURINARY: Light to moderate bleeding. EXTREMITIES: No cyanosis or edema, non-tender, without signs of DVT. Medications and IVs Current Medications Medications (Trade) Dose Ordered Sig/Rosalba Route Start Time Stop Time Status Last Admin (Tylenol) 650 mg Q4H PRN PO 09/28/17 18:45 09/28/17 20:25 (NS Flush) 2 ml BID IV FLUSH 09/29/17 09:00 (NS Flush) 2 ml UNSCH PRN IV FLUSH 09/29/17 01:45 (Percocet 5-325 Mg) 1 tab Q4H PRN PO 09/29/17 01:45 09/30/17 11:28 (Percocet 5-325 Mg) 2 tab Q4H PRN PO 09/29/17 01:45 10/01/17 08:15 (Ambien) 5 mg HS PRN PO 09/29/17 01:45 10/01/17 00:13 (Motrin) 600 mg Q6HR PRN PO 09/29/17 09:00 10/01/17 08:16 (Trandate) 200 mg BID PO 09/30/17 21:00 10/01/17 08:15 (Mari-Colace) 2 tab Q12H PRN PO 10/01/17 09:45 Assessment/Plan Problem List: (1) S/P ICD Codes: Z98.891 - History of uterine scar from previous surgery Assessment and Plan Patient is a 31-year-old delivered at 37 weeks and 4 days. Patient is day 2 after for nonreassuring heart tracing. Patient was counseled to do 6 weeks of pelvic rest. Patient was counseled to follow up in one week for an incision check and again in 6 weeks. Patient requested follow -up and contraception with OCPs. 1. Routine postop care --AF VSS --Continue routine care --Motrin and Percocet when necessary for pain --Encourage OOB --Pelvic rest for 6 weeks will need follow-up appointment at that time. Follow- up for incision check in one week. --Contraception: OCPs --Anticipate discharge Today 2. Baby in NICU on CPAP, discharged today 3. Hepatitis C positive 4. History of IV drug abuse/opioid abuse: Patient reports she has been clean for 11 months, we discussed the likelihood that she would require narcotic pain medication if she requires delivery by section. She reports she is prepared for this and has a plan in the event that she would need to go on opioid pain medication. Took opioids this morning which helped relieve pain. 5. Obesity 6. Gestational hypertension -Patient to be discharged home on labetalol 200 mg twice a day -Patient currently asymptomatic -Patient counseled to follow-up with her primary care provider for further monitoring of her blood pressure -Patient educated on signs and symptoms to return to the ED such as headaches, blurry vision, syncope, chest pain, right upper quadrant pain, and palpitations -Patient voiced understanding and all questions were answered Discussed with Tee Saenz MD R2 Oct 01, 2017 10:40
== END 2017-10-01 17:51 | disposition home or self-care (01) | DRG 765 ==
LOC: H2EB 12:30 → H1EA 09-29 02:04
PROVIDERS: ADMIT Obstetrics & Gynecology; ATTEND Obstetrics & Gynecology
PROC: 00HU33Z Insertion of Infusion Device into Spinal Canal, Percutaneous Approach (ICD-10-PCS; 2017-09-28)
PROC: 3E0R3BZ Introduction of Anesthetic Agent into Spinal Canal, Percutaneous Approach (ICD-10-PCS; 2017-09-28)
PROC: 10D00Z1 Extraction of Products of Conception, Low, Open Approach (ICD-10-PCS; principal; 2017-09-29)
DX: O36.8130 Decreased fetal movements, third trimester, not applicable or unspecified (principal); O98.42 Viral hepatitis complicating childbirth; E66.9 Obesity, unspecified; O13.4 Gestational [pregnancy-induced] hypertension without significant proteinuria, complicating childbirth; O24.429 Gestational diabetes mellitus in childbirth, unspecified control; O76 Abnormality in fetal heart rate and rhythm complicating labor and delivery; B19.20 Unspecified viral hepatitis C without hepatic coma; O36.63X0 Maternal care for excessive fetal growth, third trimester, not applicable or unspecified; O99.214 Obesity complicating childbirth; Z68.38 Body mass index [BMI] 38.0-38.9, adult; I95.2 Hypotension due to drugs; Z23 Encounter for immunization; Z3A.37 37 weeks gestation of pregnancy; Z37.0 Single live birth; T41.3X5A Adverse effect of local anesthetics, initial encounter; Y92.239 Unspecified place in hospital as the place of occurrence of the external cause
CPT/HCPCS: 59025; 76818; 76820; 80053; 80307; 81001; 82805; 83036; 84550; 85025; 86850; 86900; 86901; 87086; 88307; 90686; 90715; J0131; J0171; J0690; J1100; J2590; J2795; J3105; J7030; J7120; Q2038

== ENCOUNTER 2017-11-26 01:42 | Emergency (ER) | payer MEDICAID ==
[~2017-11-26] VITALS: Ht 172.7 cm; Wt 105.0 kg
[~2017-11-26 01:42] MED LIST changes: -ALBU1AER INH; -BENZ100 PO; +IBUP-232 PO; +LABE100T2 PO; -OSEL75 PO; +OXYC1TAB63 PO; +PERI PO; -Z.0.NO CURRENT MEDS
[2017-11-26] MEDS ORDERED: IOHEXOL 350 MG/ML 10 ML VIAL (for RAD DIAG) IVCONTRAST ONE (01:43)
[2017-11-26 01:44] VITALS: BP 144/87; PULSE 82; RESP 18; TEMP 98.3; O2SAT 98
[2017-11-26] MEDS ORDERED: ONDANSETRON HCL 4 MG/2 ML VIAL IVP ONE (02:45)
[2017-11-26] MEDS ORDERED: KETOROLAC TROMETHAMINE 30 MG/ML (IVP) VIAL IV PUSH ONE (03:15)
[2017-11-26 03:18] LABS: AUTOMATED NEUTROPHIL # 4.1 TH/MM3 (1.8-7.7); BASOPHIL % 0.2 % (0.0-2.0); EOSINOPHIL # 0.2 TH/MM3 (0-0.4); EOSINOPHIL % 2.3 % (0.0-4.0); HEMATOCRIT 35.5 % (35.0-46.0); LYMPH % 36.2 % (9.0-44.0); LYMPHOCYTE # 2.8 TH/MM3 (1.0-4.8); MEAN CELL VOLUME 86.6 FL (80.0-100.0); MEAN CORPUSCULAR HEMOGLOBIN 29.1 PG (27.0-34.0); MEAN CORPUSCULAR HGB CONC 33.7 % (32.0-36.0); MEAN PLATELET VOLUME 7.2 FL (7.0-11.0); MONOCYTE # 0.5 TH/MM3 (0-0.9); NEUT % 54.3 % (16.0-70.0); PLATELET COUNT 379 TH/MM3 (150-450); RED CELL DISTRIBUTION WIDTH 13.6 % (11.6-17.2); WHITE BLOOD COUNT 7.6 TH/MM3 (4.0-11.0)
[2017-11-26 03:29] LABS: BILIRUBIN, URINE NEG (NEG); BLOOD, URINE NEG (NEG); GLUCOSE,URINE NEG (NEG); KETONE, URINE NEG (NEG); MUCUS URINE FEW /lpf (OCC); NITRITE,URINE NEG (NEG); PH, URINE 5.5 (5.0-8.5); SQUAMOUS EPITHELIAL CELL URINE 1 /hpf (0-5); URINE COLOR YELLOW (YELLW/STRAW); URINE LEUKOCYTE ESTERASE NEG (NEG)
[2017-11-26 03:48] LABS: BICARBONATE 26.2 MEQ/L (21.0-32.0); CALCIUM 9.4 MG/DL (8.5-10.1); CREATININE 0.87 MG/DL (0.50-1.00)
--- NOTE | 2017-11-26 05:01 | RADRPT ---
EXAM DATE/TIME: 11/26/2017 04:44 [place] COMPARISON: No previous studies available for comparison. INDICATIONS : Left lower qaudrant pain. IV CONTRAST: 70 cc Omnipaque 350 (iohexol) IV ORAL CONTRAST: No oral contrast ingested. RADIATION DOSE: 16.40 CTDIvol (mGy) MEDICAL HISTORY : None SURGICAL HISTORY : None. ENCOUNTER: Initial ACUITY: 1 day PAIN SCALE: 8/10 LOCATION: Left lower quadrant TECHNIQUE: Volumetric scanning of the abdomen and pelvis was performed. Using automated exposure control and ad justment of the mA and/or kV according to patient size, radiation dose was kept as low as reasonably achievable to obtain optimal diagnostic quality images. DICOM format image data is available electro nically for review and comparison. FINDINGS: LOWER LUNGS: The visualized lower lungs are clear. LIVER: Homogeneous density. There is an 8 mm cyst in the left lobe of the liver. There is no dilation of th e biliary tree. No calcified gallstones. Gallbladder appears to be contracted. SPLEEN: Normal size without lesion. PANCREAS: Within normal limits. KIDNEYS: Normal in size and shape. There is no mass, stone or hydronephrosis. ADRENAL GLANDS: Within normal limits. VASCULAR: There is no aortic aneurysm. BOWEL/MESENTERY: The stomach, small bowel, and colon demonstrate no acute abnormality. There is no free intraperitone al air or fluid. No inflammatory changes. There is stool throughout the colon. ABDOMINAL WALL: Within normal limits. RETROPERITONEUM: There is no lymphadenopathy. BLADDER: No wall thickening or mass. REPRODUCTIVE: Within normal limits. INGUINAL: There is no lymphadenopathy or hernia. MUSCULOSKELETAL: Within normal limits for patient age. CONCLUSION: 1. 8mm benign appearing left hepatic cyst. 2. Otherwise, unremarkable examination for patient's age. Leo Millan MD on November 26, 2017 at 4:56 Board Certified Radiologist. This report was verified electronically.
[2017-11-26] MEDS ORDERED: ZOFR4TAB3 SL (05:22)
--- NOTE | 2017-11-26 05:23 | PD ---
HPI Chief Complaint: Abdominal Pain Time Seen by Provider: 02:35 Travel History International Travel<30 days: No Contact w/Intl Traveler<30days: No Traveled to known affect area: No History of Present Illness HPI 32-year-old female presents to the emergency department for complaint of left lower quadrant pain since midnight. Symptoms present for approximately 3 hours. Sudden onset left lower quadrant abdominal pain. Patient has history of ovarian cyst. Patient 8 weeks. Patient completed a two-week period 2 weeks ago. Patient is not had any abnormal bleeding or discharge. Patient's had no fever or chills. Patient does not use tampons. Patient has been seen by her [employer] and everything was reportedly fine. No dysuria frequency urgency flank pain or hematuria. Patient does not report any injury or trauma. Patient had is not had any issues with her incision site no redness induration or drainage or tenderness. PFSH Past Medical History Narrative Medical Anxiety depression ovarian cyst; nursing notes reviewed Bipolar Disorder: Yes Anxiety: Yes Depression: Yes Diminished Hearing: No ?: Unknown : 1 Para: 0 Miscarriage: 1 : 0 Ovarian Cysts: Yes Social History Alcohol Use: No Tobacco Use: No Substance Use: No Allergies-Medications (Allergen,Severity, Reaction): Coded Allergies: No Known Allergies (Verified Allergy, Unknown, 11/26/17) Reported Meds & Prescriptions Reported Meds & Active Scripts Active Zofran Odt (Ondansetron Odt) 4 Mg Tab 4 Mg SL Q6HR PRN Review of Systems Except as stated in HPI: all other systems reviewed are Neg Physical Exam Narrative GENERAL: Well-developed well-nourished female in no acute distress no respiratory distress SKIN: Warm and dry. HEAD: Normocephalic. EYES: No scleral icterus. No injection or drainage. NECK: Supple, trachea midline. No JVD or lymphadenopathy. CARDIOVASCULAR: Regular rate and rhythm without murmurs, gallops, or rubs. RESPIRATORY: Breath sounds equal bilaterally. No accessory muscle use. GASTROINTESTINAL: Abdomen soft, left greater than right lower quadrant abdominal tenderness to palpation, no guarding or rebound, nondistended. MUSCULOSKELETAL: No cyanosis, or edema. BACK: Nontender without obvious deformity. No CVA tenderness. Data Data Last Documented VS Vital Signs Date Time Temp Pulse Resp B/P (MAP) Pulse Ox O2 Delivery O2 Flow Rate FiO2 11/26/17 05:27 11/26/17 01:44 98.3 82 18 98 Room Air Orders Orders Complete Blood Count With Diff (11/26/17 02:35) Basic Metabolic Panel (Bmp) (11/26/17 02:35) Urinalysis - C+S If Indicated (11/26/17 02:35) Iv Access Insert/Monitor (11/26/17 02:35) Ondansetron Inj (Zofran Inj) (11/26/17 02:45) Ed Urine Pregnancytest Poc (11/26/17 02:35) Ct Abd/Pel W Iv Contrast(Rout) (11/26/17 ) Ketorolac Inj (Toradol Inj) (11/26/17 03:15) Iohexol 350 Inj (Omnipaque 350 Inj) (11/26/17 01:43) Ed Discharge Order (11/26/17 05:20) Labs Laboratory Tests Test 11/26/17 02:46 11/26/17 02:50 White Blood Count 7.6 TH/MM3 Red Blood Count 4.10 MIL/MM3 Hemoglobin 12.0 GM/DL Hematocrit 35.5 % Mean Corpuscular Volume 86.6 FL Mean Corpuscular Hemoglobin 29.1 PG Mean Corpuscular Hemoglobin Concent 33.7 % Red Cell Distribution Width 13.6 % Platelet Count 379 TH/MM3 Mean Platelet Volume 7.2 FL Neutrophils (%) (Auto) 54.3 % Lymphocytes (%) (Auto) 36.2 % Monocytes (%) (Auto) 7.0 % Eosinophils (%) (Auto) 2.3 % Basophils (%) (Auto) 0.2 % Neutrophils # (Auto) 4.1 TH/MM3 Lymphocytes # (Auto) 2.8 TH/MM3 Monocytes # (Auto) 0.5 TH/MM3 Eosinophils # (Auto) 0.2 TH/MM3 Basophils # (Auto) 0.0 TH/MM3 CBC Comment DIFF FINAL Differential Comment Blood Urea Nitrogen 18 MG/DL Creatinine 0.87 MG/DL Random Glucose 112 MG/DL Calcium Level 9.4 MG/DL Sodium Level 139 MEQ/L Potassium Level 4.1 MEQ/L Chloride Level 105 MEQ/L Carbon Dioxide Level 26.2 MEQ/L Anion Gap 8 MEQ/L Estimat Glomerular Filtration Rate 76 ML/MIN Urine Color YELLOW Urine Turbidity CLEAR Urine pH 5.5 Urine Specific [place] 1.025 Urine Protein NEG mg/dL Urine Glucose (UA) NEG mg/dL Urine Ketones NEG mg/dL Urine Occult Blood NEG Urine Nitrite NEG Urine Bilirubin NEG Urine Urobilinogen LESS THAN 2.0 MG/DL Urine Leukocyte Esterase NEG Urine RBC LESS THAN 1 /hpf Urine WBC 3 /hpf Urine Squamous Epithelial Cells 1 /hpf Urine Mucus FEW /lpf Microscopic Urinalysis Comment CULT NOT INDICATED MDM Medical Decision Making Medical Screen Exam Complete: Yes Emergency Medical Condition: Yes Medical Record Reviewed: Yes Interpretation(s) CBC & BMP Diagram 11/26/17 02:46 Calcium Level 9.4 Vital Signs Date Time Temp Pulse Resp B/P (MAP) Pulse Ox O2 Delivery O2 Flow Rate FiO2 11/26/17 01:44 98.3 82 18 144/87 (106) 98 Room Air POC hcg: negative Last Impressions Abdomen/Pelvis CT 11/26/17 0000 Signed Impressions: Service Date/Time: Sunday, November 26, 2017 04:44 - CONCLUSION: 1. 8mm benign appearing left hepatic cyst. 2. Otherwise, unremarkable examination for patient's age. Leo Millan MD Differential Diagnosis Ruptured ovarian cyst, ectopic , endometritis, UTI, ovarian torsion Narrative Course IV access obtained specimens collected and sent for resulting Values grossly normal range CT abdomen and pelvis ordered CT abdomen and pelvis identifies no free fluid no report of ovarian cyst; patient feels clinically improved; have discussed performing ultrasound and patient does not want to have ultrasound performed. Patient states she feels better. Diagnosis Primary Impression: Abdominal pain Qualified Codes: R10.32 - Left lower quadrant pain Referrals: Primary Care Physician call for appointment Patient Instructions: General Instructions Additional Instructions: increase fluid hydration Follow clear liquid diet for next 12-24 hours advance diet as tolerated to bland /Meme diet and regular diet avoiding fried and fatty foods Takes Zofran as prescribed as needed for nausea and/or vomiting Take ibuprofen 800 mg as often as every 8 hours for pain associated with inflammation May take acetaminophen/Tylenol for fever 100.4F or greater or for minor pain Return to the emergency department for any recurrent or persistent pain Follow-up with her primary care provider call office in a.m. to schedule follow- up appointment Med/Other Pt SpecificInfo: Prescription(s) given Scripts Ondansetron Odt (Zofran Odt) 4 Mg Tab 4 MG SL Q6HR Y for Nausea/Vomiting, #10 TAB 0 Refills Prov: Alyx Elizondo MD 11/26/17 Disposition: 01 DISCHARGE HOME Condition: Stable Alyx Elizondo MD Nov 26, 2017 05:23
== END 2017-11-26 05:43 | disposition home or self-care (01) ==
LOC: NEPC 01:42
DX: R10.32 Left lower quadrant pain (principal); K76.89 Other specified diseases of liver; F31.9 Bipolar disorder, unspecified; F41.9 Anxiety disorder, unspecified
CPT/HCPCS: 74177; 80048; 81001; 84703; 85025; 96374; 99284; J1885; Q9967

== ENCOUNTER 2018-11-08 08:06 | Inpatient (IN) ==
[2018-11-08] MEDS ORDERED: ceFAZolin 2 GM Premix Inj 2 GM/50 ML PIGGYBACK IV.SIG PRN (08:47)
[2018-11-08] MEDS ORDERED: Citric Acid/Sodium Citrate Liq 30 ML UDC PO SCH (09:00)
--- NOTE | 2018-11-08 09:12 | P.HPOB ---
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 complicated by preeclampsia without severe features. Denies headache / chest pain /shortness of breath /right upper quadrant pain /or leg pain. Previous complicated by preeclampsia patient denies chronic hypertension. Currently on labetalol 200 mg twice daily and nifedipine 60 mg daily. Weeks Gestation:: 37 Para: 1 : 3 Review of Systems All other systems reviewed negative except as stated in HPI PMFSH - History History Provided By: Patient - Medical History Medical History: Medical History (Last Updated 11/05/18 @ 12:39 by Stella Li MD) Bipolar 1 disorder, depressed Hepatitis C - Surgical History Surgical History: Surgical History (Last Updated 11/05/18 @ 12:40 by Stella Li MD) Previous section - Social History I have reviewed the patient's Social History: Yes - Tobacco History Second Hand Smoke Exposure: No Smoking Status: Former smoker - Alcohol History How Often Do You Have a Drink Containing Alcohol: Never - Substance Use History Substance History: Past History (IV opiate use) Medications and Allergies Allergies Allergy/AdvReac Type Severity Reaction Status Date / Time No Known Allergies Allergy Verified 09/14/18 13:51 Exam Narrative: GENERAL: Well-nourished, well-developed patient, obese SKIN: Warm and dry. HEAD: Normocephalic and atraumatic. EYES: No scleral icterus. No injection or drainage. ENT: No nasal drainage noted. Mucous membranes pink. Airway patent. NECK: Supple, trachea midline. No JVD. CARDIOVASCULAR: Regular rate and rhythm without murmurs, gallops, or rubs. RESPIRATORY: Breath sounds equal bilaterally. No accessory muscle use. BREASTS: Bilateral exam showed no masses , no retractions, no nipple discharge. ABDOMEN/GI: Abdomen soft, non-tender, bowel sounds present, no rebound, no guarding Gravid to 37 weeks size Fundal Height: 37 GENITOURINARY: Deferred FHT's: Category 1 Reactive FHTs 120, + Accels, No decels EXTREMITIES: No cyanosis or edema. BACK: Nontender without obvious deformity. No CVA tenderness. NEUROLOGICAL: Awake and alert. Motor and sensory grossly within normal limits. Five out of 5 muscle strength in all muscle groups. Normal speech. Assessment and Plan - Diagnosis (1) Pre-eclampsia affecting , antepartum Code(s): O14.90 - Unspecified pre-eclampsia, unspecified trimester Status: Acute (2) Previous section Code(s): Z98.891 - History of uterine scar from previous surgery Status: Acute (3) Encounter for sterilization Code(s): Z30.2 - Encounter for sterilization Status: Acute (4) 37 weeks gestation of Code(s): Z3A.37 - 37 weeks gestation of Status: Acute - Plan Per [facility] delivery at 37 weeks which will be November 08, 2018 patient is scheduled at 10:30 AM. Counseled of alternatives benefits complications including but not limited to risk of permanent injury to the bowel bladder nerves blood vessels ureters any structures in abdomen or pelvis including the fetus. Risk of infection hemorrhage. Morbidity mortality relates to the surgery and/or anesthesia related procedures. In regards to tubal sterilization 1-2 per thousand may develop ectopic as well as the permanency and irreversible nature of the procedure. Patient also aware of the risks associated with term delivery. patient expressed verbal understanding. She was advised to bring in her tubal papers. Patient is aware that she must present 2 hours prior to scheduled surgical time. Preop Intra-Op and postop expectations reviewed.
[2018-11-08 09:35] LABS: Baso % (Auto) 0.2 % (0.0-2.0); Eos # (Auto) 0.1 th/mm3 (0.0-0.4); Eos % (Auto) 0.5 % (0.0-4.0); Hematocrit 33.6 % (35.0-46.0); Hemoglobin 11.5 gm/dL (11.6-15.3); Lymph # (Auto) 1.4 th/mm3 (1.0-4.8); Lymph % (Auto) 13.4 % (9.0-44.0); Mean Corpuscular HGB Conc 34.1 % (32.0-36.0); Mean Corpuscular Hemoglobin 30.7 pg (27.0-34.0); Mean Corpuscular Volume 89.9 fL (80.0-100.0); Mean Platelet Volume 7.3 fL (7.0-11.0); Mono # (Auto) 1.1 th/mm3 (0.0-0.9); Neut % (Auto) 75.9 % (16.0-70.0); Platelet Count 299 th/mm3 (150-450); Red Blood Count 3.74 mil/mm3 (4.00-5.30); Red Cell Distribution Width 13.3 % (11.6-17.2); White Blood Count 10.5 th/mm3 (4.0-11.0)
[2018-11-08 09:58] LABS: Albumin 2.5 g/dL (3.4-5.0); Anion Gap 9 meq/L (5-15); Aspartate Aminotransferase 23 U/L (15-37); Blood Urea Nitrogen 9 mg/dL (7-18); Calcium 8.4 mg/dL (8.5-10.1); Carbon Dioxide 22.1 meq/L (21.0-32.0); Chloride 105 meq/L (98-107); Glomerular Filtration Rate Greater Than 89 mL/min (>89); Glucose,Random 108 mg/dL (74-106); Potassium 3.9 meq/L (3.5-5.1); Sodium 136 meq/L (136-145)
[2018-11-08 09:59] LABS: Alanine Aminotransferase 35 U/L (10-53); Amphetamine Screen,Urine Neg (Neg); Barbiturate Screen,Urine Neg (Neg); Cannabinoid Screen,Urine Neg (Neg); Cocaine Screen,Urine Neg (Neg); Opiate Screen,Urine Neg (Neg)
[2018-11-08 10:01] LABS: Alkaline Phosphatase 184 U/L (45-117); Total Protein 6.8 g/dL (6.4-8.2)
[2018-11-08 10:07] LABS: Bacteria,Urine Many /hpf; Bilirubin,Urine Negative (Negative); Clarity,Urine Hazy (Clear); Color,Urine Amber (Yellw/Straw); Glucose,Urine (UA) Negative (Negative); Hyaline Casts,Urine 3 /lpf (0-3); Leukocyte Esterase,Urine Negative (Negative); Mucus,Urine Few /lpf (Occasional); Nitrite,Urine Negative (Negative); Specific Gravity,Urine 1.031 (1.002-1.035); Squamous Epithelial Cell,Urine 13 /hpf (0-5); Transitional Epi Cells,Urine 1 /hpf
[2018-11-08 10:08] LABS: Ictotest,Urine Negative (Negative); Urobilinogen,Urine 0.2 mg/dL (Less than 2)
[2018-11-08] MEDS ORDERED: Morphine Sulfate PF Inj 5 MG/10 ML Ampul ONE (10:17)
[2018-11-08] MEDS ORDERED: Naloxone Inj 0.4 MG/ML Vial IV.PUSH PRN (10:27)
[2018-11-08] MEDS ORDERED: Acetaminophen 325 MG Tablet PO PRN (11:44)
[2018-11-08] MEDS ORDERED: Oxytocin 30 Units/500ml Premix 30 UNITS/500 ML BAG IV.SIG ONE (11:44)
[2018-11-08] MEDS ORDERED: Simethicone 80 MG Chew Tablet PO PRN (11:44)
[2018-11-08] MEDS ORDERED: Senna/Docusate Sodium 8.6/50 MG Tablet PO PRN (11:44)
--- NOTE | 2018-11-08 12:29 | P.OP ---
- Preoperative Diagnosis (1) Previous section (2) Hypertension affecting in third trimester (3) 37 or more weeks gestation of (4) Encounter for sterilization - Postoperative Diagnosis (1) Previous section (2) Hypertension affecting in third trimester (3) 37 or more weeks gestation of Date of procedure: 11/08/18 (This 33-year-old white female previous C- section at 37 weeks with gestational hypertension with delivery recommended by maternal medicine at this stage, she is on labetalol and Procardia for blood pressure to the previous and wants tubal ligation tubal papers were signed) Procedure: Repeat low transverse section bilateral tubal ligation Anesthesia: regional, spinal Surgeon: Eugene Leal MD Estimated blood loss (mL): 500 IV fluids (mL): 1,000 Urine output (mL): 100 Operation and Findings: Patient was taken the operating room placed in supine position operative table after adequate spinal anesthesia minutes she is prepped and draped for abdominal surgery and Pfannenstiel incision. A previous Pfannenstiel incision was excised out and cast off. Incision care to the fascia sharply and the fascia incised laterally and off the rectus muscle. Peritoneal cavity entered sharply at that time the incision extended superiorly inferiorly. Bladder blade placed lower incision the visceral peritoneum reflected off the lower uterine segment forming a small bladder flap. Some venous vessels on the right lateral side of the bladder peritoneum had some bleeding noted and were clamped off with hemostats and oversewed at the end of the case. A transverse hysterotomy placed in the body bilaterally and clear amniotic fluid noted. Baby was delivered at 10:57 AM female infant weight 3210 gm Apgars 8/8. Delayed cord clamping performed cord blood obtained and the placenta manually extracted. The uterus was exteriorized without difficulty and all remnants of membrane removed out of the. The hysterotomy is closed a running layer of 0 chromic followed by imbricating sutures same hemostasis was achieved with double stick ties. Sponge was placed over the incision with pressure in the tubal was then performed the right tube was grasped with a [place] clamp followed to its fimbriated end and avascular window in the mesosalpinx identified hemostat passed through and 0 plain catgut sutures pulled through that window and the tube was tied for and aft and the intervening segment removed and sent to pathology. Same was done on the opposite side without difficulty. The incision was then reexamined there is no bleeding from the bladder surface however a Joshua suture was placed over that area for added hemostasis. There was no sign of bleeding after that. We did not sew the bladder back up over the incision now afraid bleeding might be an issue as it was left as it existed at that time. Uterus was elevated and blood suctioned cul-de-sac and gutters uterus placed the peritoneal cavity. The parietal peritoneum closed anteriorly with a running stitch of 2-0 Vicryl. Then the fascia closed running layer of 0 Vicryl. Subcutaneous tissues were irrigated copiously and then subcu stitch placed of 0 plain catgut suture in a running closure of the deep space. Skin then closed with 3-0 Monocryl subcuticular stitch. the blood loss 500 cc ,. no complication, sponge and needle correct x2 the patient to recovery in stable condition
[2018-11-08] MEDS ORDERED: Oxytocin 30 Units/500ml Premix 30 UNITS/500 ML BAG IV.SIG PRN (16:44)
[2018-11-08] MEDS ORDERED: Zolpidem Tartrate 5 MG Tablet PO PRN (21:00)
[2018-11-09] MEDS ORDERED: Ketorolac Inj 30 MG/ML (IVP) Vial IV.PUSH PRN (02:14)
[2018-11-09 08:02] LABS: Baso # (Auto) 0.1 th/mm3 (0.0-0.2); Baso % (Auto) 0.6 % (0.0-2.0); Eos # (Auto) 0.1 th/mm3 (0.0-0.4); Eos % (Auto) 0.7 % (0.0-4.0); Hematocrit 30.5 % (35.0-46.0); Hemoglobin 10.9 gm/dL (11.6-15.3); Lymph # (Auto) 2.2 th/mm3 (1.0-4.8); Lymph % (Auto) 21.4 % (9.0-44.0); Mean Corpuscular HGB Conc 35.8 % (32.0-36.0); Mean Corpuscular Hemoglobin 31.7 pg (27.0-34.0); Mean Corpuscular Volume 88.4 fL (80.0-100.0); Mean Platelet Volume 7.2 fL (7.0-11.0); Mono # (Auto) 0.9 th/mm3 (0.0-0.9); Mono % (Auto) 8.9 % (0.0-8.0); Neut # (Auto) 6.9 th/mm3 (1.8-7.7); Neut % (Auto) 68.4 % (16.0-70.0); Platelet Count 277 th/mm3 (150-450); Red Blood Count 3.45 mil/mm3 (4.00-5.30); Red Cell Distribution Width 13.2 % (11.6-17.2); White Blood Count 10.1 th/mm3 (4.0-11.0)
--- NOTE | 2018-11-09 08:31 | P.PNOB ---
Subjective Post op day: 1 Interval history: Patient seen and examined this morning. AFVSS overnight. Postoperative day #1. Pain well controlled. Incision not draining. Decreased lochia. Denies dysuria. No breast tenderness. She is feeding the baby via breast. Appetite good. No nausea or vomiting. Denies flatus or bowel movement as Ambulating well. Denies calf pain, shortness of breath, or cough. She otherwise has no other complaints or concerns this morning. Objective Vital Signs/I&O: Vital Signs 11/08/18 09:15 11/08/18 09:20 11/08/18 09:31 Temperature 98.7 F Pulse Rate 90 88 89 Respiratory Rate 18 Blood Pressure 123/79 124/75 122/71 11/08/18 10:06 11/08/18 11:57 11/08/18 12:13 Temperature Pulse Rate 89 73 78 Respiratory Rate 18 18 Blood Pressure 115/67 118/62 117/63 11/08/18 12:30 11/08/18 12:45 11/08/18 13:45 Temperature 97.7 F 97.7 F 97.5 F L Pulse Rate 83 73 83 Respiratory Rate 18 18 18 Blood Pressure 121/63 110/56 L 125/72 11/08/18 20:26 11/09/18 00:03 11/09/18 03:58 Temperature 97.8 F 97.6 F 97.9 F Pulse Rate 96 H 86 75 Respiratory Rate 18 18 20 Blood Pressure 129/77 111/76 112/71 Intake & Output 11/08/18 11/09/18 11/09/18 18:59 06:59 18:59 Intake Total 100 / 100 Balance 100 / 100 Weight 122 kg Intake: IV 100 / 100 Ofirmev Inj 1,000 mg In 100 ml 100 / 100 @ 400 mls/hr IV.SIG Q8H [facility] Rx# :[id number] Result Diagrams: 11/09/18 07:51 11/08/18 09:07 Objective Remarks: GENERAL: Well-nourished, well-developed patient. CARDIOVASCULAR: Regular rate and rhythm without murmurs, gallops, or rubs. RESPIRATORY: Breath sounds equal bilaterally. No accessory muscle use. ABDOMEN/GI: Abdomen soft, non-tender, bowel sounds present. Incision: Clean, dry and intact. Fundus: Firm, non-tender at umbilicus. GENITOURINARY: Light bleeding. EXTREMITIES: No cyanosis or edema, non-tender, without signs of DVT. Medications and IVs: Active Medications Acetaminophen (Tylenol) 650 mg PO Q6H PRN PRN Reason: PAIN SCALE 1 TO 2 Citric Acid/Sodium Citrate (Sodium Citrate/Citric Acid Liq) 30 ml PO MANAGER WASTEWATER [facility] Stop: 11/12/18 08:59 Diphenhydramine HCl (Benadryl Inj) 25 mg IV.PUSH Q6H PRN PRN Reason: MILD TO MODERATE ITCHING Stop: 11/09/18 10:26 Diphenhydramine HCl (Benadryl) 50 mg PO Q6H PRN PRN Reason: MILD TO MODERATE ITCHING Stop: 11/09/18 10:26 Diphtheria/Pertussis/Tetanus Vacc (Boostrix Vaccine Inj) 0.5 ml IM .ONCE ONE Stop: 11/09/18 16:01 Cefazolin Sodium/Dextrose (Ancef 2 Gm Premix Inj) 2 gm in 50 mls @ 100 mls/hr IV.SIG MANAGER WASTEWATER PRN PRN Reason: PRIOR TO PROCEDURE Stop: 11/09/18 08:46 Last Admin: 11/08/18 10:20 Dose: 100 mls/hr Lactated Ringer's (Lr 1000 Ml Inj) 1,000 mls @ 150 mls/hr IV.CONT .Q6H40M [facility] Last Admin: 11/09/18 04:13 Dose: Not Given Lactated Ringer's (Lr 1000 Ml Inj) 1,000 mls @ 100 mls/hr IV.CONT .Q10H [facility] Stop: 11/09/18 12:43 Last Admin: 11/09/18 04:16 Dose: Not Given Oxytocin (Pitocin 30 Units/Ns 500 Ml Premix) 30 units in 500 mls @ 100 mls/hr IV.SIG UNSCH PRN PRN Reason: Heavy bleeding Acetaminophen (Ofirmev Inj) 1,000 mg in 100 mls @ 400 mls/hr IV.SIG Q8H [facility] Stop: 11/09/18 10:59 Last Admin: 11/09/18 02:38 Dose: 400 mls/hr Ibuprofen (Motrin) 800 mg PO Q8H PRN PRN Reason: cramping Ketorolac Tromethamine (Toradol Inj) 30 mg IV.PUSH UNSCH X1 PRN PRN Reason: SEE LABEL COMMENTS Stop: 11/11/18 02:13 Last Admin: 11/09/18 02:39 Dose: 30 mg Measles/Mumps/Rubella Vaccine Live (M-M-R Ii Vaccine Inj) 0.5 ml SQ .ONCE ONE Stop: 11/09/18 16:01 Miscellaneous Information ([facility]) 1 each OTHER UNSCH PRN PRN Reason: SEE LABEL COMMENTS Stop: 11/09/18 10:26 Miscellaneous Information ([facility] 1 each OTHER UNSCH PRN PRN Reason: SEE LABEL COMMENTS Stop: 11/09/18 10:26 Naloxone HCl (Narcan Inj) 0.4 mg IV.PUSH UNSCH PRN PRN Reason: SEE LABEL COMMENTS Stop: 11/09/18 10:26 Ondansetron HCl (Zofran Inj) 4 mg IV.PUSH Q6H PRN PRN Reason: NAUSEA OR VOMITING Oxycodone/Acetaminophen (Percocet 5/325 Mg) 1 tab PO Q4H PRN PRN Reason: PAIN SCALE 3 TO 5 Oxycodone/Acetaminophen (Percocet 5/325 Mg) 2 tab PO Q4H PRN PRN Reason: PAIN SCALE 6 TO 10 Senna/Docusate Sodium (Mari-Colace) 2 tab PO Q12H PRN PRN Reason: CONSTIPATION Simethicone (Mylicon Chew) 80 mg PO QID PRN PRN Reason: FLATULENCE Sodium Chloride (Ns Flush) 2 ml IV.FLUSH BID NATALY Last Admin: 11/09/18 02:03 Dose: Not Given Sodium Chloride (Ns Flush) 2 ml IV.FLUSH PRN PRN PRN Reason: FLUSH AFTER USING IV ACCESS Zolpidem Tartrate (Ambien) 5 mg PO HS PRN PRN Reason: INSOMNIA Assessment and Plan - Diagnosis (1) delivery delivered Code(s): O82 - Encounter for delivery without indication Status: Acute Plan: 33 y/o female who is POD# 1 s/p repeat CXN with tubal ligation. -Continue routine care. -Percocet and Motrin PRN pain. -Encouraged OOB. Advised pelvic rest for 6 wks. Advised pt to make a f/u appt. with pcp in 1-2 wks for incision check. -Re: ctrl: s/p tubal ligation -Anticipate discharge 1-2 days. - H/H stable and BP WNL dw Dr. Elvis MD
[2018-11-09 08:50] VITALS: RESP 18
[2018-11-09] MEDS ORDERED: Witch Hazel 50%/Glyderin 12.5% 40 Pad Jar RECTAL PRN (12:41)
[2018-11-09] MEDS: Famotidine 20 MG Tablet PO SCH ×2 (12:53→22:18)
[2018-11-09] MEDS ORDERED: Measles/Mumps/Rubella Vaccine Inj 0.5 ML Vial SQ ONE (16:00)
[2018-11-09] MEDS ORDERED: Diphtheria/Tetanus/Pertussis Vaccine Inj 0.5 ML Syringe IM ONE (16:00)
--- NOTE | 2018-11-10 06:33 | P.PNOB ---
Subjective Post op day: 2 Interval history: Patient seen and examined this morning. AFVSS overnight. Postoperative day # 2. Pain well controlled with medication. Incision not draining. Decreased lochia. Denies dysuria. No breast tenderness. Appetite good. No nausea or vomiting. Patient has had a bowel movement. Ambulating well. Denies calf pain, shortness of breath, or cough. She otherwise has no other complaints or concerns this morning. Objective Vital Signs/I&O: Vital Signs 11/09/18 08:00 11/09/18 20:30 Temperature 97.8 F 98.3 F Pulse Rate 83 73 Respiratory Rate 18 18 Blood Pressure 116/75 116/70 Result Diagrams: 11/09/18 07:51 11/08/18 09:07 Objective Remarks: GENERAL: Well-nourished, well-developed patient. CARDIOVASCULAR: Regular rate and rhythm without murmurs, gallops, or rubs. RESPIRATORY: Breath sounds equal bilaterally. No accessory muscle use. ABDOMEN/GI: Abdomen soft, non-tender, bowel sounds present. Incision: Clean, dry and intact. Fundus: Firm, mild tenderness at umbilicus. GENITOURINARY: Light to moderate bleeding. EXTREMITIES: No cyanosis, non-tender, without signs of DVT, +2 lower extremity edema bilaterally. Medications and IVs: Active Medications Acetaminophen (Tylenol) 650 mg PO Q6H PRN PRN Reason: PAIN SCALE 1 TO 2 Citric Acid/Sodium Citrate (Sodium Citrate/Citric Acid Liq) 30 ml PO CONSTRUCTION JOB TITLES [facility] Stop: 11/12/18 08:59 Famotidine (Pepcid) 10 mg PO BID [facility] Last Admin: 11/09/18 22:18 Dose: Not Given Lactated Ringer's (Lr 1000 Ml Inj) 1,000 mls @ 150 mls/hr IV.CONT .Q6H40M [facility] Last Admin: 11/09/18 04:13 Dose: Not Given Oxytocin (Pitocin 30 Units/Ns 500 Ml Premix) 30 units in 500 mls @ 100 mls/hr IV.SIG UNSCH PRN PRN Reason: Heavy bleeding Ibuprofen (Motrin) 800 mg PO Q8H PRN PRN Reason: cramping Last Admin: 11/10/18 02:00 Dose: 800 mg Ketorolac Tromethamine (Toradol Inj) 30 mg IV.PUSH UNSCH X1 PRN PRN Reason: SEE LABEL COMMENTS Stop: 11/11/18 02:13 Last Admin: 11/09/18 02:39 Dose: 30 mg Miscellaneous (Pill Splitter) 1 each OTHER UNSCH PRN PRN Reason: PILL SPLITTER Ondansetron HCl (Zofran Inj) 4 mg IV.PUSH Q6H PRN PRN Reason: NAUSEA OR VOMITING Oxycodone/Acetaminophen (Percocet 5/325 Mg) 1 tab PO Q4H PRN PRN Reason: PAIN SCALE 3 TO 5 Oxycodone/Acetaminophen (Percocet 5/325 Mg) 2 tab PO Q4H PRN PRN Reason: PAIN SCALE 6 TO 10 Last Admin: 11/10/18 06:08 Dose: 2 tab Senna/Docusate Sodium (Mari-Colace) 2 tab PO Q12H PRN PRN Reason: CONSTIPATION Simethicone (Mylicon Chew) 80 mg PO QID PRN PRN Reason: FLATULENCE Last Admin: 11/09/18 11:56 Dose: 80 mg Sodium Chloride (Ns Flush) 2 ml IV.FLUSH BID NATALY Last Admin: 11/09/18 22:16 Dose: 2 ml Sodium Chloride (Ns Flush) 2 ml IV.FLUSH PRN PRN PRN Reason: FLUSH AFTER USING IV ACCESS Witch Heather/Glycerin (Tucks Pads) 1 applicatio RECTAL PRN PRN PRN Reason: rectal pain Last Admin: 11/09/18 12:53 Dose: 1 applicatio Zolpidem Tartrate (Ambien) 5 mg PO HS PRN PRN Reason: INSOMNIA Assessment and Plan - Diagnosis (1) delivery delivered Code(s): O82 - Encounter for delivery without indication Status: Acute Plan: 33 y/o female who is POD# 2 s/p repeat CXN with tubal ligation. -Continue routine care. -Percocet and Motrin PRN pain. -Encouraged OOB. Advised pelvic rest for 6 wks. Advised pt to make a f/u appt. with pcp in 1-2 wks for incision check. -Re: ctrl: s/p tubal ligation -Anticipate discharge today or tomorrow pending baby's disposition. - H/H stable and BP WNL dw Dr. Vickey MD - Attending Attestation The exam, history, and the medical decision-making described in the above note were completed with the assistance of the resident physician. I reviewed and agree with the findings presented. I attest that I had a [id number] encounter with the patient on the same day, and personally performed and documented my assessment and findings in the medical record.
[2018-11-10 08:19] VITALS: BP 131/84; PULSE 77; TEMP 97.7
[2018-11-10] MEDS: Famotidine 20 MG Tablet PO SCH (18:37)
[2018-11-10] MEDS ORDERED: Influenza (Quadrivalent) Vaccine 0.5 ML Syringe IM ONE (19:00)
== END 2018-11-10 19:46 | disposition home or self-care (01) | DRG 784 ==
LOC: H2E 08:06 → H1EA 13:31
PROVIDERS: ADMIT Obstetrics & Gynecology Maternal & Fetal Medicine; ATTEND Obstetrics & Gynecology Maternal & Fetal Medicine
CPT/HCPCS: 59025; 80053; 80307; 81001; 85025; 86850; 86900; 86901; 87086; 88302; 90471; 90658; 90686; 90715; G0008; J0131; J0690; J1885; J2274; J2590; J7120; Q2038